=== PATIENT | male | born 1985 | race Caucasian/White ===

== ENCOUNTER 2016-07-18 18:25 | Inpatient (IN) ==
[2016-07-18] MEDS ORDERED: Ibuprofen 400 MG TABLET PO PRN (18:41)
[2016-07-18] MEDS ORDERED: Haloperidol Lactate 5 MG/ML VIAL IM PRN (18:41)
[2016-07-18] MEDS ORDERED: traZODone 50 MG TABLET PO PRN (18:41)
[2016-07-18] MEDS ORDERED: *HR* LORazepam 2 MG/ML VIAL IM PRN ×2 (18:41→18:50)
[2016-07-18] MEDS ORDERED: Mag Hydrox/Al Hydrox/Simeth 30 ML UDC PO PRN (18:41)
[2016-07-18] MEDS ORDERED: MOM Conc 10 ML UD.LIQ PO PRN (18:41)
[2016-07-18] MEDS ORDERED: hydrOXYzine pamoate 25 MG CAPSULE PO PRN (18:41)
[2016-07-18] MEDS ORDERED: *HR* LORazepam 1 MG TABLET PO PRN ×2 (18:41→18:50)
[2016-07-18] MEDS ORDERED: Acetaminophen 325 MG TABLET PO PRN (18:58)
[2016-07-18] MEDS ORDERED: Acetaminophen 325 MG TABLET PO SCH (20:00)
[2016-07-19] MEDS: Nicotine 21 MG PATCH.TD24 TD SCH (08:36)
[2016-07-19] MEDS: Vitamin B Complex/Vit C/Vit E 1 EACH TABLET PO SCH (08:36)
--- NOTE | 2016-07-19 10:36 | Psychiatry History & Physical ---
Date of Encounter: 07/19/16 Time of Encounter: 10:34 History of Present Illness Patient Stated Chief Complaint: "i am depressed" Medicare Admission Attestation: For traditional Medicare patients the provided hospital inpatient services are reasonable and necessary and in the case of services not specified as inpatient -only under 42 CFR 419.22 (n), that they are appropriately provided as inpatient services in accordance 42 CFR 412.3. For Critical Access Hospital the patient may reasonably be expected to be discharged or transferred to a hospital within 96 hours after admission to the Critical Access Hospital. Admitted From: Home Plans for Post Hospital Care: Home History of Present Illness: Mr. Ken is a 30 year old male with a past psychiatric history of major depressive disorder and anxiety disorder admitted to the behavioral health unit for suicidal ideations with a attempt prior to admission with trying to hang himself but reports that he was incapable of doing so after attempting 3 times. Patient reports that he has many stressors in his life right now one being that he is working but he has not able to get to work due to not having a place to stay he also reports that he is homeless and reports that he has no support or family for help. Patient reports that he has been homeless since 2013. Reports that he does have jobs but due to his depression and his recent job he had like go out because he was not able to make it to work. Patient is very motivated for treatment and we discussed medication management for his depression. Patient also reports that in the past he has not had medication because he has not been able to afford it. We discussed about medication management that would be affordable patient was agreeable to Zoloft and the patient reported some issues with sleep which we discussed starting trazodone 4. Patient endorsed depressive symptoms feeling hopeless irritable with decreased attention and decreased concentration and anhedonia depressed mood feelings of hopelessness and guilt passive suicidal ideations with no current plan. Patient endorses anxiety symptoms due to his current stressors excessive worry and feelings of panic patient did not endorse manic or hypomanic symptoms patient did not admit endorse psychotic symptoms Past Med Surg Social Fam HX - Past Medical History Medical history: no medical history - Past Psychiatric History Past psychiatric history details: Past meds: none Inpatient hospitalizations: 2009 [facility]:this admission he reports he tried to hang himself but the knots came out he reports he tried three times Current meds: none Family psychiatric history: No Family History of Suicide: None - Past Surgical History Surgical History: appendectomy - Social History Smoking Status: Current every day smoker Smokeless Tobacco Status: No Alcohol use: heavy, recent Drug use: none Occupational status: employed Current living situation: Homeless Activity Level: Independent ambulation Recent Out of Country Travel Within the Last 8 Weeks: No Exposure or Possible Exposure to Illness During Travel: No Additional social history: works at [employer] Medications & Allergies Allergies No Known Allergies Allergy (Verified 07/18/16 18:40) Review of Systems Constitutional: Denies: fever, chills, weakness, weight change, night sweats Eyes: Denies: eye pain, eye discharge, vision change Ears, Nose, Throat: Denies: ear pain, throat pain, dental pain, congestion, dysphagia Cardiovascular: Denies: chest pain, palpitations, dyspnea on exertion, orthopnea , edema, syncope Respiratory: Denies: cough, dyspnea, wheezes, hemoptysis, stridor, sputum production Psychiatric: Reports: depression, anxiety, abnormal sleep pattern, suicidal ideation, change in appetite, anhedonia, hopelessness Mental Status Exam Patient orientation: Yes Person, Yes Time, Yes Place, Yes Circumstance Level of alertness: Alert Patient appearance: Appropriate, Unkempt Behavior: anxious Psychomotor activity: Normal Eye contact: Maintains Eye Contact Mood description: Depressed, Anxious, Irritable Affect description: flat, tearful, dysphoric, anxious Speech pattern: Normal rate, Normal rhythm, Normal tone Speech volume: Normal Thought process: Intact Thought content: Yes Suicidal ideation, No Homicidal ideation, Yes Preoccupation Perceptual disturbances: No Reacting to internal stimuli, No Auditory hallucinations, No Visual hallucinations, No Tactile hallucinations Attention span: Capable of Focused Attention, Capable of Sustained Attention Memory description: Grossly Intact Intelligence estimate: Average Judgment: Limited Insight: Minimal Results - Vital Signs Vital signs: Temp Pulse Resp BP 97.6 F 75 16 113/74 07/19/16 09:00 07/19/16 09:00 07/19/16 09:00 07/19/16 09:00 Assessment and Plan (1) Major depression Current visit: Yes Status: Acute Plan: Admit inpatient for safety and stabilization, Group Therapy, Monitor sleep , Monitor appetite, Family/Supportive other meeting Additional Plan: 07/19: start zoloft 50 mg qday for deprssion start trazodone 100 mg qhs for insomnia Risks, benefits, side effects, alternatives discussed w/pt: Yes Patient agreeable to treatment: Yes Plans for Post Hospital Care: Home Estimated Length of Stay (Days): 5 Qualifiers: Major depression recurrence: recurrent Active/Remission status: currently active Major depression episode severity: severe Psychotic features: without psychotic features Qualified Code(s): F33.2 - Major depressive disorder, recurrent severe without psychotic features
[2016-07-19] MEDS ORDERED: traZODone 50 MG TABLET PO SCH (21:00)
[2016-07-20] MEDS: Nicotine 21 MG PATCH.TD24 TD SCH (08:16)
[2016-07-20] MEDS: Vitamin B Complex/Vit C/Vit E 1 EACH TABLET PO SCH (08:16)
--- NOTE | 2016-07-20 09:43 | Psychiatry Progress Note ---
Date of Encounter: 07/20/16 Time of Encounter: 09:40 Subjective Interval history: Pt seen and evaluated. Pt reports that he slept from 1030 and woke up briefly at 3 and fell back asleep till 6 am. Patient reports that he did not have any dreams last night after switching trazodone to Seroquel. Patient does report that he has not having any side effects or problems with current medication treatment. We will continue to titrate this medication. Patient has been attending groups and has been med compliant and has been interacting within group activities. Appetite fair. Patient continues to exhibit an endorse depressive symptoms as well as anxiety symptoms. Discussed at length with patient the possible discharge Saturday once medication is adjusted Review of Systems Psychiatric: Reports: depression, anxiety, abnormal sleep pattern, suicidal ideation, change in appetite, anhedonia, hopelessness Objective: Exam Patient orientation: Yes Person, Yes Time, Yes Place, Yes Circumstance Level of alertness: Alert Patient appearance: Appropriate, Unkempt Behavior: anxious Psychomotor activity: Normal Eye contact: Maintains Eye Contact Mood description: Depressed, Anxious, Irritable Affect description: flat, tearful, dysphoric, anxious Speech pattern: Normal rate, Normal rhythm, Normal tone Speech volume: Normal Thought process: Intact Thought content: Yes Suicidal ideation, No Homicidal ideation, Yes Preoccupation Perceptual disturbances: No Reacting to internal stimuli, No Auditory hallucinations, No Visual hallucinations, No Tactile hallucinations Judgment: Limited Insight: Minimal Results - Vital Signs Vital Signs: Temp Pulse Resp BP 98.5 F 99 16 113/74 07/20/16 08:39 07/20/16 08:39 07/20/16 08:39 07/20/16 08:39 Assessment and Plan (1) Major depression Current visit: Yes Status: Acute Additional Plan: 07/20: increase zoloft 100 mg for deprssion and anxiety 07/19: start zoloft 50 mg qday for deprssion start trazodone 100 mg qhs for insomnia Risks, benefits, side effects, alternatives discussed w/pt: Yes Patient agreeable to treatment: Yes Qualifiers: Major depression recurrence: recurrent Active/Remission status: currently active Major depression episode severity: severe Psychotic features: without psychotic features Qualified Code(s): F33.2 - Major depressive disorder, recurrent severe without psychotic features Consult Discharge Plan - Plan Referrals: NO,PCP [Primary Care Provider] -
[2016-07-21] MEDS: Nicotine 21 MG PATCH.TD24 TD SCH (08:45)
[2016-07-21] MEDS: Vitamin B Complex/Vit C/Vit E 1 EACH TABLET PO SCH (08:46)
--- NOTE | 2016-07-21 11:19 | Psychiatry Progress Note ---
Date of Encounter: 07/21/16 Time of Encounter: 11:17 Subjective Interval history: Patient seen and evaluated this morning. Patient reports that he slept well but he was a little restless at night. Patient reports that he is still having ongoing depressive symptoms explained to patient that we will be increasing his Zoloft. Patient was agreeable to this. Patient reports feeling anxious about his discharge plan. Discussed with patient that some of his depression and anxiety is situational due to patient being homeless and not currently having a job. Patient expressed understanding. Patient has been medication compliant. Patient has not required any when necessary medications for anxiety or depression or agitation. Per staff patient has been socializing with peers and has been active in groups. Review of Systems Psychiatric: Reports: depression, anxiety, change in appetite Objective: Exam Patient orientation: Yes Person, Yes Time, Yes Place, Yes Circumstance Level of alertness: Alert Patient appearance: Appropriate, Unkempt Behavior: anxious Psychomotor activity: Normal Eye contact: Maintains Eye Contact Mood description: Depressed, Anxious, Irritable Affect description: flat, tearful, dysphoric, anxious Speech pattern: Normal rate, Normal rhythm, Normal tone Speech volume: Normal Thought process: Intact Thought content: Yes Suicidal ideation, No Homicidal ideation, Yes Preoccupation Perceptual disturbances: No Reacting to internal stimuli, No Auditory hallucinations, No Visual hallucinations, No Tactile hallucinations Judgment: Limited Insight: Minimal Results - Vital Signs Vital Signs: Temp Pulse Resp BP 98.2 F 69 18 115/69 07/21/16 09:00 07/21/16 09:00 07/21/16 09:00 07/21/16 09:00 Assessment and Plan (1) Major depression Current visit: Yes Status: Acute Additional Plan: 07/21: increase seroquel 150 mg qhs for insomnia and mood sx's 07/20: increase zoloft 100 mg for deprssion and anxiety 07/19: start zoloft 50 mg qday for deprssion start trazodone 100 mg qhs for insomnia Risks, benefits, side effects, alternatives discussed w/pt: Yes Patient agreeable to treatment: Yes Qualifiers: Major depression recurrence: recurrent Active/Remission status: currently active Major depression episode severity: severe Psychotic features: without psychotic features Qualified Code(s): F33.2 - Major depressive disorder, recurrent severe without psychotic features Consult Discharge Plan - Plan Additional Instructions: The 24 hour crisis line for [facility] is [phone]. Referrals: [facility] [Other] (You will see Nimo counselor, on at 2:00pm to start services as a client. Please arrive at 1:30pm for paperwork. After you see Nimo, you will be given an appointment to see the psychiatrist as well. Please bring your photo ID and insurance card to your first appointment.)
[2016-07-22] MEDS: Nicotine 21 MG PATCH.TD24 TD SCH (08:24)
[2016-07-22] MEDS: Vitamin B Complex/Vit C/Vit E 1 EACH TABLET PO SCH (08:25)
--- NOTE | 2016-07-22 09:04 | Psychiatry Progress Note ---
Date of Encounter: 07/22/16 Time of Encounter: 09:01 Subjective Interval history: Pt seen and evaluated this morning. Patient reports that he got a good night sleep finally last night. Patient reports no symptoms of current anxiety does report some depressive symptoms at times. I discussed initiation and schedule of titration of his antidepressant patient reported understanding. Patient was questioning his discharge plan. Discussed with patient the professor of social work with her with patient to finalize his discharge plan for Saturday or Saturday. Patient denied SI or HI. Patient has been medication compliant. Patient has been observed by staff participating in group activities and interacting with his peers. Review of Systems Psychiatric: Reports: depression, anxiety Objective: Exam Patient orientation: Yes Person, Yes Time, Yes Place, Yes Circumstance Level of alertness: Alert Patient appearance: Appropriate, Unkempt Behavior: anxious Psychomotor activity: Normal Eye contact: Maintains Eye Contact Mood description: Depressed, Anxious Affect description: congruent with mood Speech pattern: Normal rate, Normal rhythm, Normal tone Speech volume: Normal Thought process: Intact Thought content: Yes Suicidal ideation, No Homicidal ideation, Yes Preoccupation Perceptual disturbances: No Reacting to internal stimuli, No Auditory hallucinations, No Visual hallucinations, No Tactile hallucinations Judgment: Limited Insight: Minimal Results - Vital Signs Vital Signs: Temp Pulse Resp BP 98 F 79 16 134/87 07/21/16 19:59 07/21/16 19:59 07/21/16 19:59 07/21/16 19:59 Assessment and Plan (1) Major depression Current visit: Yes Status: Acute Additional Plan: 07/22: continue meds 07/21: increase seroquel 150 mg qhs for insomnia and mood sx's 07/20: increase zoloft 100 mg for deprssion and anxiety 07/19: start zoloft 50 mg qday for deprssion start trazodone 100 mg qhs for insomnia Risks, benefits, side effects, alternatives discussed w/pt: Yes Patient agreeable to treatment: Yes Qualifiers: Major depression recurrence: recurrent Active/Remission status: currently active Major depression episode severity: severe Psychotic features: without psychotic features Qualified Code(s): F33.2 - Major depressive disorder, recurrent severe without psychotic features Consult Discharge Plan - Plan Additional Instructions: The 24 hour crisis line for [facility] is [phone]. Referrals: [facility] [Other] (You will see Nimo, counselor, on at 2:00pm to start services as a client. Please arrive at 1:30pm for paperwork. After you see Nimo, you will be given an appointment to see the psychiatrist as well. Please bring your photo ID and insurance card to your first appointment.)
[2016-07-23] MEDS: Vitamin B Complex/Vit C/Vit E 1 EACH TABLET PO SCH (08:21)
[2016-07-23] MEDS: Nicotine 21 MG PATCH.TD24 TD SCH (08:21)
[2016-07-23 08:23] VITALS: BP 109/76
--- NOTE | 2016-07-23 09:47 | Discharge Summary ---
Date of Encounter: 07/23/16 Time of Encounter: 09:46 Diagnosis - Discharge Diagnosis (1) Major depression Priority: Primary Status: Acute Qualifiers: Major depression recurrence: recurrent Active/Remission status: currently active Major depression episode severity: severe Psychotic features: without psychotic features Qualified Code(s): F33.2 - Major depressive disorder, recurrent severe without psychotic features Medications - Discharge Medications Prescriptions: Quetiapine Fumarate [Seroquel] 150 mg PO HS #45 tablet Sertraline [Zoloft] 100 mg PO DAILY #30 tablet Quetiapine Fumarate [Seroquel] 150 mg PO HS #45 tablet 07/23/16 [Rx] Sertraline [Zoloft] 100 mg PO DAILY #30 tablet 07/23/16 [Rx] Allergies No Known Allergies Allergy (Verified 07/18/16 18:40) Provider Date of admission: 07/18/16 18:25 Primary care physician: PCP NO Discharging clinician: Bacilio Hsieh Assessment and Plan - Patient/Caregiver Discharge Instructions Activity: resume usual activities as tolerated Diet: regular diet Additional Instructions: The 24 hour crisis line for [facility] is [phone]. - Follow up Plan Follow up with: [facility] [Other] (You will see jacky Sueroor, on at 2:00pm to start services as a client. Please arrive at 1:30pm for paperwork. After you see Nimo, you will be given an appointment to see the psychiatrist as well. Please bring your photo ID and insurance card to your first appointment.) Functional capacity at discharge: independent ambulation Overall status at discharge: Stable Disposition: Home, Self-Care Hospital Course Hospital course: Mr. Ken is a 30 year old male admitted from the emergency room for depression and suicidal ideation and anxiety. The details of the admission please see H&P. On the unit patient was evaluated, he was started on medication including sertraline and Seroquel patient had some side effects from trazodone and trazodone was replaced with Seroquel. Patient is reported improved on medication he denies suicidal ideation he participated in group activities and his discharge plans were completed by the high school social studies teacher. Prior to Discharge patient was medically stable and denies suicidal ideation and looking forward to placement and continuation of medication and follow-up. - Time Spent with Patient Total time spent providing and/or coordinating discharge services: Less than 30 minutes Quality - Multiple Antipsychotics Patient discharged on 2 or more antipsychotic medications: No Procedures - Procedures Procedures: Medication Management, Crisis Stabilization, Supportive Therapy, Group Therapy, Psychoeducational Therapy Mental Status Exam - Mental Status Exam Patient orientation: Yes Person, Yes Time, Yes Place, Yes Circumstance Level of alertness: Alert Patient appearance: Appropriate, Well Groomed, Thin Behavior: calm, cooperative, anxious Psychomotor activity: Normal Eye contact: Maintains Eye Contact Mood description: Euthymic/stable, Anxious Affect description: congruent with mood Speech pattern: Normal rate, Normal rhythm, Normal tone Speech Volume: Normal Thought process: Intact Thought Content: No Suicidal ideation, No Homicidal ideation Perceptual Disturbances: No Reacting to internal stimuli, No Auditory hallucinations, No Visual hallucinations, No Tactile hallucinations Judgment: Fair Insight: Partial
== END 2016-07-23 19:35 | disposition home or self-care (01) | DRG 751 ==
LOC: SUATTDRO 18:25 → 1ANU 18:25
PROVIDERS: ADMIT Psychiatry & Neurology Psychiatry; ATTEND Psychiatry & Neurology Psychiatry

== ENCOUNTER 2016-07-30 23:07 | Inpatient (IN) ==
[2016-07-30 23:29] LABS: Bilirubin,Urine Negative (Negative); Blood,Urine Negative (Negative); Clarity,Urine Clear (Clear); Color,Urine Yellow (Yellow); Glucose,Urine (UA) Normal (Normal); Ketones,Urine Negative (Negative); Leukocyte Esterase,Urine Negative (Negative); Nitrite,Urine Negative (Negative); PH,Urine 6.5 pH Units (5.0-8.0); Protein,Urine Negative (Neg-Trace); Specific Gravity,Urine 1.006 (1.010-1.025); Urobilinogen,Urine Normal (Normal)
[2016-07-30 23:35] LABS: Amphetamine Screen,Urine Negative ng/mL (Cutoff=1000); Barbiturate Screen,Urine Negative ng/mL (Cutoff=200); Benzodiazepines Screen,Urine Negative ng/mL (Cutoff=200); Cannabinoid Screen,Urine Negative ng/mL (Cutoff = 50); Cocaine Screen,Urine Negative ng/mL (Cutoff= 300); Opiate Screen,Urine Negative ng/mL (Cutoff=300); Phencyclidine Screen,Urine Negative ng/mL (Cutoff=25)
[2016-07-30 23:40] LABS: Basophils # 0.1 K/mcL (0.0-0.2); Basophils % 0.6 %; Eosinophils # 0.1 K/mcL (0.0-0.6); Eosinophils % 0.7 %; Hematocrit 48.3 % (37.5-50.1); Hemoglobin 16.9 g/dL (12.9-16.9); Immature Granulocytes % 0.4 % (0-4); Lymphocytes # 2.6 K/mcL (0.6-4.6); Lymphocytes % 27.8 %; Mean Corpuscular Hemoglobin 31.7 pg (28.0-33.3); Mean Corpuscular Volume 90.6 fL (83.0-100.0); Mean Platelet Volume 9.5 fL (9.4-12.4); Monocytes # 0.6 K/mcL (0.0-1.3); Monocytes % 6.1 %; Neutrophils # 6.1 K/mcL (1.6-8.9); Platelet Count 256 K/mcL (140-400); Red Blood Count 5.33 M/mcL (4.19-5.50); Segmented Neutrophils % 64.4 %
[2016-07-30] MEDS ORDERED: Ketamine *HR* 500 MG/10 ML MDV IM ONE (23:45)
--- NOTE | 2016-07-30 23:47 | Emergency Department Note ---
Disposition Clinical Impression: Suicidal ideation Depression Qualifiers: Depression Type: unspecified Qualified Code(s): F32.9 - Major depressive disorder, single episode, unspecified Disposition: Admitted As Inpatient Condition: Fair Referrals: NO,PCP [Primary Care Provider] - Forms: ED Satisfaction Letter Time of Disposition: 15:35 Psych HPI - General Chief Complaint: ED Psychiatric Symptoms Stated Complaint: SI/ETOH Time Seen by Provider: 07/30/16 23:21 Source: patient Mode of arrival: ambulatory Limitations: altered mental status Nursing Notes Reviewed: Yes Vital Signs Reviewed: Yes - History of Present Illness HPI Narrative: Emergency department by his brother. On July 18 patient attempted suicide while staying at a hotel room he was found having hung himself with a sheet and they did Cut him down from hanging himself and was brought to the emergency department and he was admitted to [facility] for 5 days. His brother is upset he states that he does not want to do just needs to find help for his brother. Apparently they went to check on him at his hotel room tonight and found that he was contemplating committing suicide in hanging himself against. There was a sheet draped across the edge of the bed and apparently he had intentions of trying to hang himself. He has been drinking tonight he is uncooperative combative and aggressive. He does admit to suicidal ideation and is wanting to leave at this time states that there is no way we can hold him at this time. Initially he did say that he wanted to talk to somebody on [facility] and get some help. He has been pink slipped at this time due to the fact that he has both a threat to himself and to others around him. We have him in 4-point restraints due to his combative behavior and we will medicate him with ketamine. He did urinate for us and we did lab work for him. His brother, Artemio, states he has been seeing things that are not there and he doesn't know what to do and just wants to find help for him. Pt complaint: suicidal ideation, feels depressed If medical clearance, reason: intoxication, psychiatric condition History of similar episodes: Yes Improves with: none Worsens with: none Context: recent alcohol abuse, not taking psychiatric medications Alleged intoxication: Yes Associated Psychiatric Symptoms: depression, suicidal ideation Self harm or harm to others: admits thoughts of self harm, has plan - Related Data Previous Rx's Medication Instructions Recorded Quetiapine Fumarate [Seroquel] 150 mg PO HS #45 tablet 07/23/16 Sertraline [Zoloft] 100 mg PO DAILY #30 tablet 07/23/16 Allergies Allergy/AdvReac Type Severity Reaction Status Date / Time No Known Allergies Allergy Verified 07/30/16 23:11 All systems ED: reviewed and negative except as stated. Constitutional: Denies: fever, chills, weakness, weight change Cardiovascular: Denies: chest pain, palpitations, dyspnea on exertion, edema, syncope Respiratory: Denies: cough, dyspnea, wheezes, hemoptysis, stridor Psychiatric: Reports: suicidal thoughts, visual hallucinations Past Medical History - Past Medical History Medical history: Reports: no medical history Surgical history: Reports: appendectomy Psychiatric history: Reports: anxiety, depression, prior suicide attempt, previous psychiatric hospitalization - Social History Smoking Status: Current every day smoker Smokeless Tobacco Status: No Alcohol use: Reports: heavy, recent Drug use: Reports: none Physical Exam - General Limitations: no limitations General appearance: alert Course - Reevaluation(s) Reevaluation #1: Patient's blood alcohol was 287, will need to be below 80 before 1A will see and evaluate patient. Will plan to redraw blood alcohol at 0800. Time: 03:16 Reevaluation #2: Patient continues to sleep at this time. No complaints. Time: 05:34 Vital Signs Temperature 97.7 F 07/30/16 23:11 Pulse Rate 130 07/30/16 23:11 Respiratory Rate 20 07/30/16 23:11 Blood Pressure 137/73 07/30/16 23:11 O2 Sat by Pulse Oximetry 96 07/30/16 23:11 Temperature 98.7 F 07/31/16 13:10 Pulse Rate 100 07/31/16 13:10 Respiratory Rate 15 07/31/16 13:10 Blood Pressure 112/60 07/31/16 13:10 O2 Sat by Pulse Oximetry 95 07/31/16 13:10 Oxygen Delivery Oxygen Delivery Room Air Psych - Lab Data Result diagrams: 07/30/16 23:33 07/30/16 23:33 Lab Results 07/30/16 07/30/16 07/30/16 Range/Units 23:21 23:21 23:33 WBC 9.5 (4.3-11.1) K/mcL RBC 5.33 (4.19-5.50) M/mcL Hgb 16.9 (12.9-16.9) g/dL Hct 48.3 (37.5-50.1) % MCV 90.6 (83.0-100.0) fL MCH 31.7 (28.0-33.3) pg MCHC 35.0 (31.6-35.5) g/dL RDW 12.0 (11.5-14.5) % Plt Count 256 (140-400) K/mcL MPV 9.5 (9.4-12.4) fL Immature Gran % 0.4 (0-4) % Seg Neutrophils % 64.4 % Lymphocytes % 27.8 % Monocytes % 6.1 % Eosinophils % 0.7 % Basophils % 0.6 % Neutrophils # 6.1 (1.6-8.9) K/mcL Lymphocytes # 2.6 (0.6-4.6) K/mcL Monocytes # 0.6 (0.0-1.3) K/mcL Eosinophils # 0.1 (0.0-0.6) K/mcL Basophils # 0.1 (0.0-0.2) K/mcL Sodium (136-145) mEq/L Potassium (3.5-4.5) mEq/L Chloride (98-109) mEq/L Carbon Dioxide (19-29) mEq/L BUN (8-26) mg/dL Creatinine (0.72-1.25) mg/dL Est GFR ( Amer) (> 60) Est GFR (Non-Af Amer) (> 60) BUN/Creatinine Ratio (6-26) Glucose (70-99) mg/dL Calculated Osmolality (280-300) Calcium (8.6-10.8) mg/dL Total Bilirubin (0.2-1.2) mg/dL Direct Bilirubin (0.0-0.5) mg/dL Indirect Bilirubin (0.0-1.2) mg/dL AST (5-34) Units/L ALT (0-55) Units/L Alkaline Phosphatase (38-126) Units/L Serum Total Protein (6.0-8.3) g/dL Albumin (3.5-5.0) g/dL Globulin (2.4-3.5) g/dL Albumin/Globulin Ratio (1.1-2.2) TSH (0.350-4.840) mcIU/mL Urine Color Yellow (Yellow) Urine Clarity Clear (Clear) Urine pH 6.5 (5.0-8.0) pH Units Ur Specific [place] 1.006 L (1.010-1.025) Urine Protein Negative (Neg-Trace) mg/dL Urine Glucose (UA) Normal (Normal) mg/dL Urine Ketones Negative (Negative) mg/dL Urine Blood Negative (Negative) Urine Nitrite Negative (Negative) Urine Bilirubin Negative (Negative) Urine Urobilinogen Normal (Normal) mg/dL Ur Leukocyte Esterase Negative (Negative) Salicylates (15-30) mg/dL Urine Opiates Screen Negative (Wouydq=804) ng/mL Acetaminophen (10-30) mcg/mL Ur Barbiturates Screen Negative (Samptr=198) ng/mL Ur Phencyclidine Scrn Negative (Cutoff=25) ng/mL Ur Amphetamines Screen Negative (Wmfmpi=8686) ng/mL U Benzodiazepines Scrn Negative (Conupp=697) ng/mL Urine Cocaine Screen Negative (Cutoff= 300) ng/mL U Marijuana (THC) Screen Negative (Cutoff = 50) ng/mL Ethyl Alcohol (0-10) mg/dL 07/30/16 07/31/16 07/31/16 Range/Units 23:33 08:13 11:06 WBC (4.3-11.1) K/mcL RBC (4.19-5.50) M/mcL Hgb (12.9-16.9) g/dL Hct (37.5-50.1) % MCV (83.0-100.0) fL MCH (28.0-33.3) pg MCHC (31.6-35.5) g/dL RDW (11.5-14.5) % Plt Count (140-400) K/mcL MPV (9.4-12.4) fL Immature Gran % (0-4) % Seg Neutrophils % % Lymphocytes % % Monocytes % % Eosinophils % % Basophils % % Neutrophils # (1.6-8.9) K/mcL Lymphocytes # (0.6-4.6) K/mcL Monocytes # (0.0-1.3) K/mcL Eosinophils # (0.0-0.6) K/mcL Basophils # (0.0-0.2) K/mcL Sodium 143 (136-145) mEq/L Potassium 3.9 (3.5-4.5) mEq/L Chloride 110 H (98-109) mEq/L Carbon Dioxide 20 (19-29) mEq/L BUN 10 (8-26) mg/dL Creatinine 0.87 (0.72-1.25) mg/dL Est GFR ( Amer) > 60 (> 60) Est GFR (Non-Af Amer) > 60 (> 60) BUN/Creatinine Ratio 11 (6-26) Glucose 113 H (70-99) mg/dL Calculated Osmolality 296 (280-300) Calcium 9.2 (8.6-10.8) mg/dL Total Bilirubin 0.3 (0.2-1.2) mg/dL Direct Bilirubin 0.1 (0.0-0.5) mg/dL Indirect Bilirubin 0.2 (0.0-1.2) mg/dL AST 23 (5-34) Units/L ALT 32 (0-55) Units/L Alkaline Phosphatase 101 (38-126) Units/L Serum Total Protein 8.6 H (6.0-8.3) g/dL Albumin 4.7 (3.5-5.0) g/dL Globulin 3.9 H (2.4-3.5) g/dL Albumin/Globulin Ratio 1.2 (1.1-2.2) TSH 2.668 (0.350-4.840) mcIU/mL Urine Color (Yellow) Urine Clarity (Clear) Urine pH (5.0-8.0) pH Units Ur Specific [place] (1.010-1.025) Urine Protein (Neg-Trace) mg/dL Urine Glucose (UA) (Normal) mg/dL Urine Ketones (Negative) mg/dL Urine Blood (Negative) Urine Nitrite (Negative) Urine Bilirubin (Negative) Urine Urobilinogen (Normal) mg/dL Ur Leukocyte Esterase (Negative) Salicylates < 5.0 L (15-30) mg/dL Urine Opiates Screen (Flnyvp=438) ng/mL Acetaminophen < 1.0 L (10-30) mcg/mL Ur Barbiturates Screen (Ptaaqo=350) ng/mL Ur Phencyclidine Scrn (Cutoff=25) ng/mL Ur Amphetamines Screen (Cgrwnc=1720) ng/mL U Benzodiazepines Scrn (Rxvpuq=622) ng/mL Urine Cocaine Screen (Cutoff= 300) ng/mL U Marijuana (THC) Screen (Cutoff = 50) ng/mL Ethyl Alcohol 287 H 134 H 94 H (0-10) mg/dL 07/31/16 Range/Units 13:40 WBC (4.3-11.1) K/mcL RBC (4.19-5.50) M/mcL Hgb (12.9-16.9) g/dL Hct (37.5-50.1) % MCV (83.0-100.0) fL MCH (28.0-33.3) pg MCHC (31.6-35.5) g/dL RDW (11.5-14.5) % Plt Count (140-400) K/mcL MPV (9.4-12.4) fL Immature Gran % (0-4) % Seg Neutrophils % % Lymphocytes % % Monocytes % % Eosinophils % % Basophils % % Neutrophils # (1.6-8.9) K/mcL Lymphocytes # (0.6-4.6) K/mcL Monocytes # (0.0-1.3) K/mcL Eosinophils # (0.0-0.6) K/mcL Basophils # (0.0-0.2) K/mcL Sodium (136-145) mEq/L Potassium (3.5-4.5) mEq/L Chloride (98-109) mEq/L Carbon Dioxide (19-29) mEq/L BUN (8-26) mg/dL Creatinine (0.72-1.25) mg/dL Est GFR ( Amer) (> 60) Est GFR (Non-Af Amer) (> 60) BUN/Creatinine Ratio (6-26) Glucose (70-99) mg/dL Calculated Osmolality (280-300) Calcium (8.6-10.8) mg/dL Total Bilirubin (0.2-1.2) mg/dL Direct Bilirubin (0.0-0.5) mg/dL Indirect Bilirubin (0.0-1.2) mg/dL AST (5-34) Units/L ALT (0-55) Units/L Alkaline Phosphatase (38-126) Units/L Serum Total Protein (6.0-8.3) g/dL Albumin (3.5-5.0) g/dL Globulin (2.4-3.5) g/dL Albumin/Globulin Ratio (1.1-2.2) TSH (0.350-4.840) mcIU/mL Urine Color (Yellow) Urine Clarity (Clear) Urine pH (5.0-8.0) pH Units Ur Specific [place] (1.010-1.025) Urine Protein (Neg-Trace) mg/dL Urine Glucose (UA) (Normal) mg/dL Urine Ketones (Negative) mg/dL Urine Blood (Negative) Urine Nitrite (Negative) Urine Bilirubin (Negative) Urine Urobilinogen (Normal) mg/dL Ur Leukocyte Esterase (Negative) Salicylates (15-30) mg/dL Urine Opiates Screen (Bcevhp=746) ng/mL Acetaminophen (10-30) mcg/mL Ur Barbiturates Screen (Ozgjvm=837) ng/mL Ur Phencyclidine Scrn (Cutoff=25) ng/mL Ur Amphetamines Screen (Mfxnlj=6847) ng/mL U Benzodiazepines Scrn (Oxfnnb=649) ng/mL Urine Cocaine Screen (Cutoff= 300) ng/mL U Marijuana (THC) Screen (Cutoff = 50) ng/mL Ethyl Alcohol 49 H (0-10) mg/dL Psychiatric Medical Clearance - Medical Clearance Checklist Does the patient have a NEW psychiatric condition?: No Any abnormalities indicating possible medical illness?: No Any history of medical issues?: No Medical History: No Social History Section defined Any abnormal vital signs prior to transfer?: No Current Vitals: Last Vital Signs Temp 98.7 F 07/31/16 13:10 Pulse 100 07/31/16 13:10 Resp 15 07/31/16 13:10 BP 112/60 07/31/16 13:10 Pulse Ox 95 07/31/16 13:10 Is the patient intoxicated or cognitively impaired?: Yes (Blood alcohol 287; will redraw at 0800) Psychiatric Lab Panel: Drug Levels and Toxicity 07/30/16 07/30/16 07/31/16 23:21 23:33 08:13 Urine Opiates Screen Negative Acetaminophen < 1.0 L Ur Barbiturates Screen Negative Ur Phencyclidine Scrn Negative Ur Amphetamines Screen Negative U Benzodiazepines Scrn Negative Urine Cocaine Screen Negative U Marijuana (THC) Screen Negative Ethyl Alcohol 287 H 134 H 07/31/16 07/31/16 11:06 13:40 Urine Opiates Screen Acetaminophen Ur Barbiturates Screen Ur Phencyclidine Scrn Ur Amphetamines Screen U Benzodiazepines Scrn Urine Cocaine Screen U Marijuana (THC) Screen Ethyl Alcohol 94 H 49 H Any abnormalities on the physical exam?: No Any abnormal labs?: No Abnormal Labs: Abnormal lab results Chloride 110 mEq/L (98-109) H 07/30/16 23:33 Glucose 113 mg/dL (70-99) H 07/30/16 23:33 Serum Total Protein 8.6 g/dL (6.0-8.3) H 07/30/16 23:33 Globulin 3.9 g/dL (2.4-3.5) H 07/30/16 23:33 Ur Specific [place] 1.006 (1.010-1.025) L 07/30/16 23:21 Salicylates < 5.0 mg/dL (15-30) L 07/30/16 23:33 Acetaminophen < 1.0 mcg/mL (10-30) L 07/30/16 23:33 Ethyl Alcohol 49 mg/dL (0-10) H 07/31/16 13:40 Does the patient require durable medical equiptment?: No Is the patient ambulatory?: Yes Is the patient a fall risk?: No Has the patient been medically cleared?: Yes Any acute medical condition require Tx prior to transfer?: No S.B.A.R. - S.B.A.R. Background: Presenting Complaint Assessment: Vital Signs, Course and respsone to treatment, Patient/Family Expectation, Pertinant Lab Results, Outstanding Labs Recommendation: Recommendation based on pending studies, treatments, or consults (will need repeat Blood alcohol at 0800 and call 1A to come and evaluate patient for possible admission to their unit. He is pink slipped at this time. ) S.B.A.R. Report Given to: KENAN Baker Attestation Statement - Attestation Attestation: For this encounter, I have reviewed the ASSEMBLER ENGINE or PA documentation, treatment plan, and medical decision making; and I have had face to face time with this patient. Patient seen for depression suicidal ideation physical examination lungs are clear abdomen is soft. Patient's alcohol level was high we monitored until he came down into the normal range patient was evaluated by psychiatry felt he should be admitted for his safety.
[2016-07-30 23:55] LABS: Alanine Aminotransferase 32 Units/L (0-55); Albumin 4.7 g/dL (3.5-5.0); Albumin/Globulin Ratio 1.2 (1.1-2.2); Alkaline Phosphatase 101 Units/L (38-126); Aspartate Amino Transferase 23 Units/L (5-34); BUN/Creatinine Ratio 11 (6-26); Bilirubin,Direct 0.1 mg/dL (0.0-0.5); Bilirubin,Indirect 0.2 mg/dL (0.0-1.2); Bilirubin,Total 0.3 mg/dL (0.2-1.2); Blood Urea Nitrogen 10 mg/dL (8-26); Calcium 9.2 mg/dL (8.6-10.8); Carbon Dioxide 20 mEq/L (19-29); Chloride 110 mEq/L (98-109); Globulin 3.9 g/dL (2.4-3.5); Glucose 113 mg/dL (70-99); Osmolality,Calculated 296 (280-300); Potassium 3.9 mEq/L (3.5-4.5); Sodium 143 mEq/L (136-145); Total Protein 8.6 g/dL (6.0-8.3); eGFR For African Americans > 60 (> 60); eGFR For Non-African Americans > 60 (> 60)
--- NOTE | 2016-07-31 00:07 | Emergency Department Note ---
START Narrative - START START: I examined this patient and my medical decision-making was reviewed with the DIRECTOR OF PLAYER PERSONNEL/PA/Advanced Practice Nurse/Resident Physician. I agree with the documented findings, disposition and treatment plan as described except to the extent set forth below. ED attending note: Patient seen with nurse practitioner Darin Camara. Please see a copy of his note for details of the H&P, evaluation, management and disposition of this patient. We independently had [id number] contact with the patient Briefly: A 30-year-old male via police and EMS style ideations attempted to hang himself before his discharge from the hospital family member found a bed sheet and his room patient was very labile and stating thoughts of suicide. Very combative and aggressive here we used the subcutaneous associated dose of 1 mg/kg of IM ketamine for chemical sedation and restraint. Patient will undergo medical clearance and evaluation by mental health for final disposition. Disposition pending. Patient stable
[2016-07-31 01:08] LABS: Ethanol 287 mg/dL (0-10)
[2016-07-31 01:13] LABS: Acetaminophen < 1.0 mcg/mL (10-30); Salicylate < 5.0 mg/dL (15-30)
[2016-07-31] MEDS ORDERED: Haloperidol Lactate 5 MG/ML VIAL IM ONE (01:13)
[2016-07-31 01:28] LABS: Thyroid Stimulating Hormone 2.668 mcIU/mL (0.350-4.840)
[2016-07-31] MEDS ORDERED: traZODone 50 MG TABLET PO PRN (16:09)
[2016-07-31] MEDS ORDERED: Mag Hydrox/Al Hydrox/Simeth 30 ML UDC PO PRN (16:09)
[2016-07-31] MEDS ORDERED: Haloperidol Lactate 5 MG/ML VIAL IM PRN (16:09)
[2016-07-31] MEDS ORDERED: *HR* LORazepam 1 MG TABLET PO PRN (16:09)
[2016-07-31] MEDS ORDERED: *HR* LORazepam 2 MG/ML VIAL IM PRN (16:09)
[2016-07-31] MEDS ORDERED: MOM Conc 10 ML UD.LIQ PO PRN (16:09)
[2016-07-31] MEDS: hydrOXYzine pamoate 25 MG CAPSULE PO PRN (17:24)
[2016-07-31] MEDS: Acetaminophen 325 MG TABLET PO PRN (20:07)
--- NOTE | 2016-08-01 10:13 | Psychiatry History & Physical ---
Date of Encounter: 08/01/16 Time of Encounter: 10:15 History of Present Illness Patient Stated Chief Complaint: suicidal Medicare Admission Attestation: For traditional Medicare patients the provided hospital inpatient services are reasonable and necessary and in the case of services not specified as inpatient -only under 42 CFR 419.22 (n), that they are appropriately provided as inpatient services in accordance 42 CFR 412.3. For Critical Access Hospital the patient may reasonably be expected to be discharged or transferred to a hospital within 96 hours after admission to the Critical Access Hospital. Admitted From: Emergency Dept History of Present Illness: Mr. Ken is a 30 year old male admitted from the emergency department for suicidal ideation and intoxication was alcohol patient level in the ER was 287 and he was held in the ER nurse prior to [facility]. Disks was a rapid readmission, patient was discharged from this unit on July 23. He did not follow the discharge plan and started drinking excessive amount of alcohol and presented to reporting suicidal ideation. Also patient did not fill his prescription or take medication after discharge. Patient was interviewed with addiction social worker and joint evaluation he became angry and used profanities and left the office without being excused. Past Med Surg Social Fam HX - Past Medical History Medical history: no medical history - Past Psychiatric History Psychiatric history: Reports: depression, previous psychiatric hospitalization, other (Alcohol dependence and intoxication) Past psychiatric history details: Hospitalized at [facility] from July 18 and discharge 07/23/2016. Family psychiatric history: Unknown Family History of Suicide: Unknown - Past Surgical History Surgical History: appendectomy - Social History Smoking Status: Current every day smoker Smokeless Tobacco Status: No Alcohol use: heavy, recent Drug use: none Medications & Allergies Quetiapine Fumarate [Seroquel] 150 mg PO HS #45 tablet 07/23/16 [Rx] Sertraline [Zoloft] 100 mg PO DAILY #30 tablet 07/23/16 [Rx] Allergies No Known Allergies Allergy (Verified 07/30/16 23:11) Review of Systems Psychiatric: Reports: suicidal ideation, other (Clinical intoxication and agitation and noncompliance) Mental Status Exam Patient orientation: Yes Person, Yes Time, Yes Place Level of alertness: Alert Patient appearance: Appropriate, Well Groomed, Unkempt, Disheveled, Inappropriate Behavior: agitated, hostile, uncooperative, guarded, impulsive, other (Verbally abusive and profane to the doctor and addiction social worker) Psychomotor activity: Agitated Eye contact: Avoids Eye Contact Mood description: Angry, Irritable, Other (Agitated) Affect description: constricted, dysphoric, other (Hostile and uncooperative) Speech pattern: Limited, Includes Profanity Speech volume: Soft/Quiet Thought process: Tangential, Thought Blocking Thought content: Yes Suicidal ideation, Yes Homicidal ideation, No Overt delusions Perceptual disturbances: No Auditory hallucinations, No Visual hallucinations Attention span: Capable of Focused Attention Memory description: Grossly Intact Patient reliability: Reliable Historian Intelligence estimate: Average Judgment: Limited Insight: Partial Additional Findings: Patient was uncooperative with evaluation patient stated hostile verbally abusive and profane with the doctor and addiction social worker and left interview without excuse. Results - Vital Signs Vital signs: Temp Pulse Resp BP Pulse Ox 96.6 F L 93 16 119/86 95 08/01/16 08:22 08/01/16 08:22 08/01/16 08:22 08/01/16 08:22 07/31/16 13:10 - Labs Labs: Laboratory Last Values WBC 9.5 K/mcL (4.3-11.1) 07/30/16 23:33 RBC 5.33 M/mcL (4.19-5.50) 07/30/16 23:33 Hgb 16.9 g/dL (12.9-16.9) 07/30/16 23:33 Hct 48.3 % (37.5-50.1) 07/30/16 23:33 MCV 90.6 fL (83.0-100.0) 07/30/16 23:33 MCH 31.7 pg (28.0-33.3) 07/30/16 23:33 MCHC 35.0 g/dL (31.6-35.5) 07/30/16 23:33 RDW 12.0 % (11.5-14.5) 07/30/16 23:33 Plt Count 256 K/mcL (140-400) 07/30/16 23:33 MPV 9.5 fL (9.4-12.4) 07/30/16 23:33 Immature Gran % 0.4 % (0-4) 07/30/16 23:33 Seg Neutrophils % 64.4 % 07/30/16 23:33 Lymphocytes % 27.8 % 07/30/16 23:33 Monocytes % 6.1 % 07/30/16 23:33 Eosinophils % 0.7 % 07/30/16 23: Basophils % 0.6 % 07/30/16 23:33 Neutrophils # 6.1 K/mcL (1.6-8.9) 07/30/16 23:33 Lymphocytes # 2.6 K/mcL (0.6-4.6) 07/30/16 23: Monocytes # 0.6 K/mcL (0.0-1.3) 07/30/16 23:33 Eosinophils # 0.1 K/mcL (0.0-0.6) 07/30/16 23: Basophils # 0.1 K/mcL (0.0-0.2) 07/30/16 23:33 Sodium 143 mEq/L (136-145) 07/30/16 23:33 Potassium 3.9 mEq/L (3.5-4.5) 07/30/16 23: Chloride 110 mEq/L (98-109) H 07/30/16 23:33 Carbon Dioxide 20 mEq/L (19-29) 07/30/16 23:33 BUN 10 mg/dL (8-26) 07/30/16 23: Creatinine 0.87 mg/dL (0.72-1.25) 07/30/16 23:33 Est GFR ( Amer) > 60 (> 60) 07/30/16 23:33 Est GFR (Non-Af Amer) > 60 (> 60) 07/30/16 23:33 BUN/Creatinine Ratio 11 (6-26) 07/30/16 23:33 Glucose 113 mg/dL (70-99) H 07/30/16 23:33 Calculated Osmolality 296 (280-300) 07/30/16 23:33 Calcium 9.2 mg/dL (8.6-10.8) 07/30/16 23:33 Total Bilirubin 0.3 mg/dL (0.2-1.2) 07/30/16 23:33 Direct Bilirubin 0.1 mg/dL (0.0-0.5) 07/30/16 23:33 Indirect Bilirubin 0.2 mg/dL (0.0-1.2) 07/30/16 23:33 AST 23 Units/L (5-34) 07/30/16 23:33 ALT 32 Units/L (0-55) 07/30/16 23:33 Alkaline Phosphatase 101 Units/L (38-126) 07/30/16 23:33 Serum Total Protein 8.6 g/dL (6.0-8.3) H 07/30/16 23:33 Albumin 4.7 g/dL (3.5-5.0) 07/30/16 23:33 Globulin 3.9 g/dL (2.4-3.5) H 07/30/16 23:33 Albumin/Globulin Ratio 1.2 (1.1-2.2) 07/30/16 23:33 TSH 2.668 mcIU/mL (0.350-4.840) 07/30/16 23:33 Urine Color Yellow (Yellow) 07/30/16 23:21 Urine Clarity Clear (Clear) 07/30/16 23:21 Urine pH 6.5 pH Units (5.0-8.0) 07/30/16 23:21 Ur Specific [place] 1.006 (1.010-1.025) L 07/30/16 23:21 Urine Protein Negative mg/dL (Neg-Trace) 07/30/16 23:21 Urine Glucose (UA) Normal mg/dL (Normal) 07/30/16 23:21 Urine Ketones Negative mg/dL (Negative) 07/30/16 23:21 Urine Blood Negative (Negative) 07/30/16 23:21 Urine Nitrite Negative (Negative) 07/30/16 23:21 Urine Bilirubin Negative (Negative) 07/30/16 23:21 Urine Urobilinogen Normal mg/dL (Normal) 07/30/16 23:21 Ur Leukocyte Esterase Negative (Negative) 07/30/16 23:21 Salicylates < 5.0 mg/dL (15-30) L 07/30/16 23:33 Urine Opiates Screen Negative ng/mL (Lbwagu=188) 07/30/16 23:21 Acetaminophen < 1.0 mcg/mL (10-30) L 07/30/16 23:33 Ur Barbiturates Screen Negative ng/mL (Mgqvwi=297) 07/30/16 23:21 Ur Phencyclidine Scrn Negative ng/mL (Cutoff=25) 07/30/16 23:21 Ur Amphetamines Screen Negative ng/mL (Kevxlk=9948) 07/30/16 23:21 U Benzodiazepines Scrn Negative ng/mL (Epvcxg=016) 07/30/16 23:21 Urine Cocaine Screen Negative ng/mL (Cutoff= 300) 07/30/16 23:21 U Marijuana (THC) Screen Negative ng/mL (Cutoff = 50) 07/30/16 23:21 Ethyl Alcohol 49 mg/dL (0-10) H 07/31/16 13:40 Assessment and Plan (1) Depression Current visit: Yes Status: Acute Plan: Admit inpatient for safety and stabilization, Close observation, Suicide Precautions per unit protocol, Encourage participation in unit milieu, Group Therapy, Monitor sleep, Monitor appetite Risks, benefits, side effects, alternatives discussed w/pt: Yes Patient agreeable to treatment: No Qualifiers: Depression Type: other depression Qualified Code(s): F32.89 - Other specified depressive episodes (2) Alcohol dependence with acute alcoholic intoxication Current visit: Yes Status: Acute Plan: Admit inpatient for safety and stabilization, Close observation, Suicide Precautions per unit protocol, Encourage participation in unit milieu, Group Therapy, Monitor sleep, Monitor appetite Additional Plan: Patient is refusing treatment plan, and cooperative and agitated and refusing treatment. Risks, benefits, side effects, alternatives discussed w/pt: Yes Patient agreeable to treatment: No Qualifiers: Complication of substance-induced condition: with delirium Qualified Code(s ): F10.221 - Alcohol dependence with intoxication delirium
--- NOTE | 2016-08-02 11:15 | Psychiatry Progress Note ---
Date of Encounter: 08/02/16 Time of Encounter: 11:13 Subjective Interval history: Patient seen for follow-up. Nursing staff reports he is seclusive to himself, uncooperative was assessments or history, he would not specify goals for his hospitalization or in the future. He is irritable and angry and refused to answer questions. He continued to threaten to kill himself when he leaves the hospital. Review of Systems Psychiatric: Reports: depression, suicidal ideation, hopelessness, irritability , other ( Uncooperative, refused to answer questions) Objective: Exam Patient orientation: Yes Person, Yes Time, Yes Place Level of alertness: Alert Patient appearance: Unkempt, Disheveled, Inappropriate Behavior: agitated, hostile, uncooperative, guarded, impulsive, other (Verbally abusive and profane to the doctor and geriatric social worker) Psychomotor activity: Agitated Eye contact: Avoids Eye Contact Mood description: Angry, Irritable, Other (Agitated) Affect description: constricted, dysphoric, other (Hostile and uncooperative) Speech pattern: Limited, Includes Profanity Speech volume: Soft/Quiet Thought process: Tangential, Thought Blocking Thought content: Yes Suicidal ideation, Yes Homicidal ideation, No Overt delusions Perceptual disturbances: No Auditory hallucinations, No Visual hallucinations Judgment: Limited Insight: Partial Results - Vital Signs Vital Signs: Temp Pulse Resp BP Pulse Ox 98 F 85 16 108/71 95 08/02/16 09:00 08/02/16 09:00 08/02/16 09:00 08/02/16 09:00 07/31/16 13:10 Assessment and Plan (1) Depression Current visit: Yes Status: Acute Plan: Continue hospitalization, Close observation, Suicide Precautions per unit protocol, Encourage participation in unit milieu, Group Therapy, Monitor sleep, Monitor appetite Additional Plan: Staff advised to obtain collateral information from patient's family in order to assess his risk for suicide and discharge plan with safety assurance. If patient refused to authorize the staff to contact the family are well appropriate 10 were probated him to extend hospitalization at the expiration of involuntary admission. Risks, benefits, side effects, alternatives discussed w/pt: Yes Patient agreeable to treatment: No Qualifiers: Depression Type: other depression Qualified Code(s): F32.89 - Other specified depressive episodes (2) Alcohol dependence with acute alcoholic intoxication Current visit: Yes Status: Acute Plan: Continue hospitalization, Close observation, Suicide Precautions per unit protocol, Encourage participation in unit milieu, Group Therapy, Monitor sleep, Monitor appetite Risks, benefits, side effects, alternatives discussed w/pt: Yes Patient agreeable to treatment: No Qualifiers: Complication of substance-induced condition: with delirium Qualified Code(s ): F10.221 - Alcohol dependence with intoxication delirium Consult Discharge Plan - Plan Referrals: NO,PCP [Primary Care Provider] -
--- NOTE | 2016-08-03 15:06 | Psychiatry Progress Note ---
Date of Encounter: 08/03/16 Time of Encounter: 15:00 Subjective Interval history: Patient refused to be seen and is not interested in groups or activities as indicated in notes by director of social work and nursing staff. Appropriate papers were filled out in view of the patient's lack of cooperation and lack of stability at this time. He will continue to endorse suicidal ideation and intention to do so self harm. Treatment team discussed [facility] a [facility] and director of social work started the process. Continued to be uncooperative and refusing treatment plan discussion. Review of Systems Psychiatric: Reports: depression, suicidal ideation, hopelessness, irritability , other ( Uncooperative, refused to answer questions) Objective: Exam Patient orientation: Yes Person, Yes Time, Yes Place Level of alertness: Alert Patient appearance: Unkempt, Disheveled, Inappropriate Additional observations: Patient refused to be seen for follow-up. Behavior: agitated, hostile, uncooperative, guarded, impulsive, other (Verbally abusive and profane to the doctor and director of social work) Psychomotor activity: Agitated Eye contact: Avoids Eye Contact Mood description: Angry, Irritable, Other (Agitated) Affect description: constricted, dysphoric, other (Hostile and uncooperative) Speech pattern: Limited, Includes Profanity Speech volume: Soft/Quiet Thought process: Tangential, Thought Blocking Thought content: Yes Suicidal ideation, Yes Homicidal ideation, No Overt delusions Perceptual disturbances: No Auditory hallucinations, No Visual hallucinations Judgment: Limited Insight: Partial Results - Vital Signs Vital Signs: Temp Pulse Resp BP Pulse Ox 98.0 F 76 16 107/61 95 08/03/16 08:35 08/03/16 08:35 08/03/16 08:35 08/03/16 08:35 07/31/16 13:10 Assessment and Plan (1) Depression Current visit: Yes Status: Acute Plan: Continue hospitalization, Close observation, Suicide Precautions per unit protocol, Encourage participation in unit milieu, Group Therapy, Monitor sleep, Monitor appetite Risks, benefits, side effects, alternatives discussed w/pt: Yes Patient agreeable to treatment: No Qualifiers: Depression Type: other depression Qualified Code(s): F32.89 - Other specified depressive episodes (2) Alcohol dependence with acute alcoholic intoxication Current visit: Yes Status: Acute Plan: Continue hospitalization, Close observation, Suicide Precautions per unit protocol, Encourage participation in unit milieu, Group Therapy, Monitor sleep, Monitor appetite Risks, benefits, side effects, alternatives discussed w/pt: Yes Patient agreeable to treatment: No Qualifiers: Complication of substance-induced condition: with delirium Qualified Code(s ): F10.221 - Alcohol dependence with intoxication delirium Consult Discharge Plan - Plan Referrals: NO,PCP [Primary Care Provider] -
--- NOTE | 2016-08-04 11:40 | Psychiatry Progress Note ---
Date of Encounter: 08/04/16 Time of Encounter: 10:25 Subjective Interval history: Patient seen and interviewed. History and physical examination reviewed. More controlled and cooperative today. Patient is reporting of not feeling good. He is endorsing hopelessness hopelessness and suicidal thoughts and ideations. He is reporting nervousness and anxiety. He reported poor sleep with frequent nightmares and flashbacks from the past trauma. Patient is isolated and withdrawn. Endorsing depressive symptoms and a motivation. Tolerating medications fairly well. Review of Systems Psychiatric: Reports: depression, abnormal sleep pattern, suicidal ideation, hopelessness, irritability Objective: Exam Patient orientation: Yes Person, Yes Time, Yes Place Level of alertness: Alert Patient appearance: Unkempt, Disheveled Behavior: cooperative, nervous, anxious, withdrawn Psychomotor activity: Normal Eye contact: Avoids Eye Contact Mood description: Anxious, Irritable, Other (Agitated) Affect description: constricted, dysphoric, other (Hostile and uncooperative) Speech pattern: Clear, Slowed Speech volume: Soft/Quiet Thought process: [place], Slowed Thinking Thought content: Yes Suicidal ideation, No Overt delusions Perceptual disturbances: No Auditory hallucinations, No Visual hallucinations Judgment: Limited Insight: Partial Results - Vital Signs Vital Signs: Temp Pulse Resp BP Pulse Ox 97.8 F 76 16 106/69 95 08/04/16 08:26 08/04/16 08:26 08/04/16 08:26 08/04/16 08:26 07/31/16 13:10 Assessment and Plan (1) Depression Current visit: Yes Status: Acute Plan: Continue hospitalization, Close observation, Suicide Precautions per unit protocol, Encourage participation in unit milieu, Group Therapy, Monitor sleep, Monitor appetite Additional Plan: Zoloft will be increased to 150 mg daily for depression and anxiety Seroquel will be increased to 300 mg at bedtime for poor sleep Prazosin 1 mg at bedtime will be started for nightmares and flashback Risks, benefits, side effects, alternatives discussed w/pt: Yes Patient agreeable to treatment: No Qualifiers: Depression Type: other depression Qualified Code(s): F32.89 - Other specified depressive episodes (2) Alcohol dependence with acute alcoholic intoxication Current visit: Yes Status: Acute Plan: Continue hospitalization, Close observation, Suicide Precautions per unit protocol, Encourage participation in unit milieu, Group Therapy, Monitor sleep, Monitor appetite Additional Plan: . Risks, benefits, side effects, alternatives discussed w/pt: Yes Patient agreeable to treatment: No Qualifiers: Complication of substance-induced condition: uncomplicated Qualified Code(s ): F10.220 - Alcohol dependence with intoxication, uncomplicated Consult Discharge Plan - Plan Referrals: NO,PCP [Primary Care Provider] -
--- NOTE | 2016-08-05 12:21 | Psychiatry Progress Note ---
Date of Encounter: 08/05/16 Time of Encounter: 12:05 Subjective Interval history: Patient seen and interviewed. Patient continued to verbalize hopelessness helplessness suicidal ideations. Patient is extremely negative and a motivated. Withdrawn and isolated. Encouraged to participate in activities. Patient was given some tools to confront and challenge these negative thoughts. I also discussed at length about patient and his relationship with his 14-year -old daughter and the impact that she will be facing if patient decides to kill himself. I provided some data from previous studies about the impact of pain includes suicide on children and how the risk of their own suicide increases with the parental suicide. Patient is able to comprehend and understand the information that was provided to him and is willing to think over it. Tolerating medications fairly well. Review of Systems Psychiatric: Reports: depression, abnormal sleep pattern, suicidal ideation, hopelessness, irritability Objective: Exam Patient orientation: Yes Person, Yes Time, Yes Place Level of alertness: Alert Patient appearance: Unkempt, Disheveled Behavior: cooperative, nervous, anxious, withdrawn Psychomotor activity: Normal Eye contact: Avoids Eye Contact Mood description: Anxious, Irritable, Other (Agitated) Affect description: constricted, dysphoric, other (Hostile and uncooperative) Speech pattern: Clear, Slowed Speech volume: Soft/Quiet Thought process: [place], Slowed Thinking Thought content: Yes Suicidal ideation, No Overt delusions Perceptual disturbances: No Auditory hallucinations, No Visual hallucinations Judgment: Limited Insight: Partial Results - Vital Signs Vital Signs: Temp Pulse Resp BP Pulse Ox 98 F 85 16 106/72 95 08/05/16 08:11 08/05/16 08:11 08/05/16 08:11 08/05/16 08:11 07/31/16 13:10 Assessment and Plan (1) Depression Current visit: Yes Status: Acute Plan: Continue hospitalization, Close observation, Suicide Precautions per unit protocol, Encourage participation in unit milieu, Group Therapy, Monitor sleep, Monitor appetite Additional Plan: Continue with current medications. Will increase Zoloft 200 mg daily from tomorrow. Patient is awaiting placement at [facility]. Risks, benefits, side effects, alternatives discussed w/pt: Yes Patient agreeable to treatment: No Qualifiers: Depression Type: other depression Qualified Code(s): F32.89 - Other specified depressive episodes (2) Alcohol dependence with acute alcoholic intoxication Current visit: Yes Status: Acute Plan: Continue hospitalization, Close observation, Suicide Precautions per unit protocol, Encourage participation in unit milieu, Group Therapy, Monitor sleep, Monitor appetite Risks, benefits, side effects, alternatives discussed w/pt: Yes Patient agreeable to treatment: No Qualifiers: Complication of substance-induced condition: uncomplicated Qualified Code(s ): F10.220 - Alcohol dependence with intoxication, uncomplicated Consult Discharge Plan - Plan Referrals: NO,PCP [Primary Care Provider] -
[2016-08-06] MEDS: hydrOXYzine pamoate 25 MG CAPSULE PO PRN (14:30)
--- NOTE | 2016-08-06 14:32 | Psychiatry Progress Note ---
Date of Encounter: 08/06/16 Time of Encounter: 14:27 Subjective Interval history: Patient is seen for follow-up. He continue to endorse suicidal ideation and hopelessness but he told me that he has a good day, has some energy. He will complain of feeling anxious and having difficulty sleeping and feeling his mood is up and down. He is worried about his disposition and I explained to him that we do not have a specific disposition at this time but we want to have adequate post discharge treatment plan. I discussed with him adding Depakote as a mood stabilizer , benefits and side effects were discussed and he is agreeable. He was encouraged to attend groups and participate in activities. Review of Systems Psychiatric: Reports: depression, anxiety, abnormal sleep pattern, suicidal ideation, hopelessness, irritability Objective: Exam Patient orientation: Yes Person, Yes Time, Yes Place Level of alertness: Alert Patient appearance: Appropriate, Unkempt, Disheveled Behavior: cooperative, nervous, anxious, withdrawn Psychomotor activity: Normal Eye contact: Avoids Eye Contact Mood description: Anxious, Irritable, Other (Agitated) Affect description: constricted, dysphoric, other (Hostile and uncooperative) Speech pattern: Normal tone, Clear, Slowed Speech volume: Soft/Quiet Thought process: [place], [place] Thought content: Yes Suicidal ideation, No Overt delusions Perceptual disturbances: No Auditory hallucinations, No Visual hallucinations Judgment: Limited Insight: Partial Results - Vital Signs Vital Signs: Temp Pulse Resp BP Pulse Ox 97.6 F 93 14 112/62 95 08/06/16 08:52 08/06/16 08:52 08/06/16 08:52 08/06/16 08:52 07/31/16 13:10 Assessment and Plan (1) Depression Current visit: Yes Status: Acute Plan: Continue hospitalization, Close observation, Suicide Precautions per unit protocol, Encourage participation in unit milieu, Group Therapy, Monitor sleep, Monitor appetite Additional Plan: Will add Depakote 500 mg at bedtime as more stabilizer, benefits and side effects were discussed and patient is agreeable to start. Risks, benefits, side effects, alternatives discussed w/pt: Yes Patient agreeable to treatment: No Qualifiers: Depression Type: other depression Qualified Code(s): F32.89 - Other specified depressive episodes (2) Alcohol dependence with acute alcoholic intoxication Current visit: Yes Status: Acute Plan: Continue hospitalization, Close observation, Suicide Precautions per unit protocol, Encourage participation in unit milieu, Group Therapy, Monitor sleep, Monitor appetite Risks, benefits, side effects, alternatives discussed w/pt: Yes Patient agreeable to treatment: No Qualifiers: Complication of substance-induced condition: uncomplicated Qualified Code(s ): F10.220 - Alcohol dependence with intoxication, uncomplicated Consult Discharge Plan - Plan Referrals: NO,PCP [Primary Care Provider] -
[2016-08-06] MEDS ORDERED: Divalproex (12 HR) 500 MG TABLET PO SCH (21:00)
--- NOTE | 2016-08-07 14:34 | Psychiatry Progress Note ---
Date of Encounter: 08/07/16 Time of Encounter: 14:23 Subjective Interval history: Deficiency for follow-up. She self-reports is compliant with medication and attend some groups but he continue to be irritable and continued to make suicidal statements. She tells me that day, while sleep, initial insomnia. He is motivated to take medications to feel better. Probable cause hearing was done this afternoon and probable cause was found and final hearing will be scheduled. Review of Systems Psychiatric: Reports: depression, anxiety, abnormal sleep pattern, suicidal ideation, hopelessness, irritability Objective: Exam Patient orientation: Yes Person, Yes Time, Yes Place Level of alertness: Alert Patient appearance: Appropriate, Unkempt Behavior: cooperative, nervous, anxious, withdrawn Psychomotor activity: Normal Eye contact: Minimal Contact Mood description: Anxious, Irritable, Other (Agitated) Affect description: constricted, dysphoric, other (Hostile and uncooperative) Speech pattern: Normal tone, Clear, Slowed Speech volume: Soft/Quiet Thought process: [place], [place] Thought content: Yes Suicidal ideation, No Overt delusions Perceptual disturbances: No Auditory hallucinations, No Visual hallucinations Judgment: Limited Insight: Partial Results - Vital Signs Vital Signs: Temp Pulse Resp BP Pulse Ox 97.5 F L 85 16 111/80 95 08/07/16 08:47 08/07/16 08:47 08/07/16 08:47 08/07/16 08:47 07/31/16 13:10 Assessment and Plan (1) Depression Current visit: Yes Status: Acute Plan: Continue hospitalization, Close observation, Suicide Precautions per unit protocol, Encourage participation in unit milieu, Group Therapy, Monitor sleep, Monitor appetite Additional Plan: We will increase Depakote to 1000 milligram at bedtime Risks, benefits, side effects, alternatives discussed w/pt: Yes Patient agreeable to treatment: No Qualifiers: Depression Type: other depression Qualified Code(s): F32.89 - Other specified depressive episodes (2) Alcohol dependence with acute alcoholic intoxication Current visit: Yes Status: Acute Plan: Continue hospitalization, Close observation, Suicide Precautions per unit protocol, Encourage participation in unit milieu, Group Therapy, Monitor sleep, Monitor appetite Risks, benefits, side effects, alternatives discussed w/pt: Yes Patient agreeable to treatment: No Qualifiers: Complication of substance-induced condition: uncomplicated Qualified Code(s ): F10.220 - Alcohol dependence with intoxication, uncomplicated Consult Discharge Plan - Plan Referrals: NO,PCP [Primary Care Provider] -
[2016-08-07] MEDS: hydrOXYzine pamoate 25 MG CAPSULE PO PRN (14:45)
[2016-08-07] MEDS ORDERED: Divalproex (12 HR) 500 MG TABLET PO SCH (21:00)
--- NOTE | 2016-08-08 13:27 | Psychiatry Progress Note ---
Date of Encounter: 08/08/16 Time of Encounter: 12:45 Subjective Interval history: Patient is here for follow-up. Nursing staff reports he is complaining of poor sleep and irritability, states that his mind is racing. He continued to express suicidal ideation. He participated in some groups and compliant with his medication. I discussed with him some medication changes and he is agreeable. Orders were given. Discharge planning is ongoing. Review of Systems Psychiatric: Reports: depression, anxiety, abnormal sleep pattern, suicidal ideation, hopelessness, irritability Objective: Exam Patient orientation: Yes Person, Yes Time, Yes Place Level of alertness: Alert Patient appearance: Appropriate, Unkempt Behavior: cooperative, nervous, anxious, withdrawn Psychomotor activity: Normal Eye contact: Minimal Contact Mood description: Anxious, Irritable, Other (Agitated) Affect description: constricted, dysphoric, other (Hostile and uncooperative) Speech pattern: Normal tone, Clear, Slowed Speech volume: Soft/Quiet Thought process: [place], [place] Thought content: Yes Suicidal ideation, No Overt delusions Perceptual disturbances: No Auditory hallucinations, No Visual hallucinations Judgment: Limited Insight: Partial Results - Vital Signs Vital Signs: Temp Pulse Resp BP Pulse Ox 97.5 F L 107 16 95/60 95 08/08/16 09:00 08/08/16 09:00 08/08/16 09:00 08/08/16 09:00 07/31/16 13:10 Assessment and Plan (1) Depression Current visit: Yes Status: Acute Plan: Continue hospitalization, Close observation, Suicide Precautions per unit protocol, Encourage participation in unit milieu, Group Therapy, Monitor sleep, Monitor appetite Additional Plan: Will discontinue Seroquel. We will start Haldol 10 mg twice a day. We will increase Depakote to 1000 mg twice a day. Depakote level ordered for August 10. Risks, benefits, side effects, alternatives discussed w/pt: Yes Patient agreeable to treatment: No Qualifiers: Depression Type: other depression Qualified Code(s): F32.89 - Other specified depressive episodes (2) Alcohol dependence with acute alcoholic intoxication Current visit: Yes Status: Acute Plan: Continue hospitalization, Close observation, Suicide Precautions per unit protocol, Encourage participation in unit milieu, Group Therapy, Monitor sleep, Monitor appetite Risks, benefits, side effects, alternatives discussed w/pt: Yes Patient agreeable to treatment: No Qualifiers: Complication of substance-induced condition: uncomplicated Qualified Code(s ): F10.220 - Alcohol dependence with intoxication, uncomplicated Consult Discharge Plan - Plan Referrals: NO,PCP [Primary Care Provider] -
[2016-08-08] MEDS: Divalproex (12 HR) 500 MG TABLET PO SCH (21:18)
[2016-08-09] MEDS: Divalproex (12 HR) 500 MG TABLET PO SCH ×2 (08:27→21:20)
--- NOTE | 2016-08-09 14:20 | Psychiatry Progress Note ---
Date of Encounter: 08/09/16 Time of Encounter: 14:00 Subjective Interval history: Patient is here for follow-up. He is tolerating medication changes and reports that his racing thoughts are slowing down. His sleep is improving. Continued to endorse suicidal ideation. Discharge planning is ongoing to find stepdown where he can be safe and monitored. He has been compliant with medication and attend some groups. Review of Systems Psychiatric: Reports: depression, anxiety, abnormal sleep pattern, suicidal ideation, hopelessness Objective: Exam Patient orientation: Yes Person, Yes Time, Yes Place Level of alertness: Alert Patient appearance: Appropriate, Unkempt Behavior: cooperative, nervous, anxious, withdrawn Psychomotor activity: Normal Eye contact: Minimal Contact Mood description: Anxious, Irritable, Other (Agitated) Affect description: constricted, dysphoric, other (Hostile and uncooperative) Speech pattern: Normal tone, Clear, Slowed Speech volume: Soft/Quiet Thought process: [place], [place] Thought content: Yes Suicidal ideation, No Overt delusions Perceptual disturbances: No Auditory hallucinations, No Visual hallucinations Judgment: Limited Insight: Partial Results - Vital Signs Vital Signs: Temp Pulse Resp BP Pulse Ox 98.7 F 88 16 105/61 95 08/09/16 09:00 08/09/16 09:00 08/09/16 09:00 08/09/16 09:00 07/31/16 13:10 Assessment and Plan (1) Depression Current visit: Yes Status: Acute Plan: Continue hospitalization, Close observation, Suicide Precautions per unit protocol, Encourage participation in unit milieu, Group Therapy, Monitor sleep, Monitor appetite Risks, benefits, side effects, alternatives discussed w/pt: Yes Patient agreeable to treatment: No Qualifiers: Depression Type: other depression Qualified Code(s): F32.89 - Other specified depressive episodes (2) Alcohol dependence with acute alcoholic intoxication Current visit: Yes Status: Acute Plan: Continue hospitalization, Close observation, Suicide Precautions per unit protocol, Encourage participation in unit milieu, Group Therapy, Monitor sleep, Monitor appetite Risks, benefits, side effects, alternatives discussed w/pt: Yes Patient agreeable to treatment: No Qualifiers: Complication of substance-induced condition: uncomplicated Qualified Code(s ): F10.220 - Alcohol dependence with intoxication, uncomplicated Consult Discharge Plan - Plan Referrals: NO,PCP [Primary Care Provider] -
[2016-08-10] MEDS: Divalproex (12 HR) 500 MG TABLET PO SCH (08:48)
--- NOTE | 2016-08-10 15:09 | Psychiatry Progress Note ---
Date of Encounter: 08/10/16 Time of Encounter: 15:06 Subjective Interval history: Patient seen for follow-up. He was reported slightly sedated and his Depakote level was high. He did not complain of any lethargy, he slept well, his racing is better . He was interviewed by by someone from the [email or web address] to decide on his placement. He continued to make suicidal statements. He is not agitated or irritable.he reports muscles of his upper arm and neck are tight, he is able to move his neck in all direction and there is no spasm. Review of Systems Psychiatric: Reports: depression, anxiety, abnormal sleep pattern, suicidal ideation, hopelessness Objective: Exam Patient orientation: Yes Person, Yes Time, Yes Place Level of alertness: Alert Patient appearance: Appropriate, Unkempt Behavior: calm, cooperative, withdrawn Psychomotor activity: Normal Eye contact: Minimal Contact Mood description: Anxious, Irritable, Other (Agitated) Affect description: congruent with mood, constricted, dysphoric, other (Hostile and uncooperative) Speech pattern: Normal tone, Clear, Slowed Speech volume: Soft/Quiet Thought process: Logical, Linear, [place] Thought content: Yes Suicidal ideation, No Overt delusions Perceptual disturbances: No Auditory hallucinations, No Visual hallucinations Judgment: Limited Insight: Partial Results - Vital Signs Vital Signs: Temp Pulse Resp BP Pulse Ox 98.6 F 111 16 91/70 95 08/10/16 09:00 08/10/16 09:00 08/10/16 09:00 08/10/16 09:00 07/31/16 13:10 - Labs Labs: Laboratory Results - last 24 hr 08/10/16 08:08 Valproic Acid 146.68 H Assessment and Plan (1) Alcohol dependence with acute alcoholic intoxication Current visit: Yes Status: Acute Plan: Continue hospitalization, Close observation, Suicide Precautions per unit protocol, Encourage participation in unit milieu, Group Therapy, Monitor sleep, Monitor appetite Risks, benefits, side effects, alternatives discussed w/pt: Yes Patient agreeable to treatment: No Qualifiers: Complication of substance-induced condition: uncomplicated Qualified Code(s ): F10.220 - Alcohol dependence with intoxication, uncomplicated (2) Severe major depression with psychotic features Current visit: Yes Status: Acute Plan: Continue hospitalization, Close observation, Suicide Precautions per unit protocol, Encourage participation in unit milieu, Group Therapy, Monitor sleep, Monitor appetite Additional Plan: Will add Cogentin 1 mg twice a day. Discontinue Depakote order and starts Depakote 1000 mg ER on August 11. Also give Cogentin 2 mg IM one time for extrapyramidal symptoms. Risks, benefits, side effects, alternatives discussed w/pt: Yes Patient agreeable to treatment: Yes Consult Discharge Plan - Plan Referrals: NO,PCP [Primary Care Provider] -
--- NOTE | 2016-08-11 14:00 | Psychiatry Progress Note ---
Date of Encounter: 08/11/16 Time of Encounter: 13:49 Subjective Interval history: Patient is here for follow-up. He will continue the self isolates, continues to endorse suicidal ideation. He cannot decide whether he should live with family or by himself. He denies any side effect from the medication and denies any muscle spasm. Reports racing slowed down and sleep improved. His placements plans will be updated on Saturday. Review of Systems Psychiatric: Reports: depression, anxiety, abnormal sleep pattern, suicidal ideation, hopelessness Objective: Exam Patient orientation: Yes Person, Yes Time, Yes Place Level of alertness: Alert Patient appearance: Appropriate, Unkempt Behavior: calm, cooperative, withdrawn Psychomotor activity: Normal Eye contact: Maintains Eye Contact Mood description: Anxious, Irritable, Other (Agitated) Affect description: congruent with mood, constricted, dysphoric, other (Hostile and uncooperative) Speech pattern: Normal rate, Normal rhythm, Normal tone, Clear, Slowed Speech volume: Soft/Quiet Thought process: Logical, Linear, [place] Thought content: Yes Suicidal ideation, No Overt delusions Perceptual disturbances: No Auditory hallucinations, No Visual hallucinations Judgment: Limited Insight: Partial Results - Vital Signs Vital Signs: Temp Pulse Resp BP Pulse Ox 98.6 F 94 16 102/69 95 08/11/16 08:24 08/11/16 08:24 08/11/16 08:24 08/11/16 08:24 07/31/16 13:10 - Labs Labs: Laboratory Results - last 24 hr 08/11/16 09:48 Valproic Acid 51.23 Assessment and Plan (1) Alcohol dependence with acute alcoholic intoxication Current visit: Yes Status: Acute Plan: Continue hospitalization, Close observation, Suicide Precautions per unit protocol, Encourage participation in unit milieu, Group Therapy, Monitor sleep, Monitor appetite Risks, benefits, side effects, alternatives discussed w/pt: Yes Patient agreeable to treatment: No Qualifiers: Complication of substance-induced condition: uncomplicated Qualified Code(s ): F10.220 - Alcohol dependence with intoxication, uncomplicated (2) Severe major depression with psychotic features Current visit: Yes Status: Acute Plan: Continue hospitalization, Close observation, Suicide Precautions per unit protocol, Encourage participation in unit milieu, Group Therapy, Monitor sleep, Monitor appetite Risks, benefits, side effects, alternatives discussed w/pt: Yes Patient agreeable to treatment: Yes Consult Discharge Plan - Plan Referrals: NO,PCP [Primary Care Provider] -
[2016-08-11] MEDS: Divalproex (24 HR) 500 MG TABLET PO SCH (21:12)
--- NOTE | 2016-08-12 13:32 | Psychiatry Progress Note ---
Date of Encounter: 08/12/16 Time of Encounter: 13:00 Subjective Interval history: Patient is seen for follow-up. Staff report he continued to endorse suicidal ideation without plan, is compliant with medication and reports improved sleep and less racing. He denies any side effects. He tell me how the visit was the family yesterday that went well but he still not sure about his discharge plans or placement. I discussed with him medication compliance and side effects and she acknowledged that information. Review of Systems Psychiatric: Reports: depression, anxiety, abnormal sleep pattern, suicidal ideation, hopelessness Objective: Exam Patient orientation: Yes Person, Yes Time, Yes Place Level of alertness: Alert Patient appearance: Appropriate, Unkempt Behavior: calm, cooperative, withdrawn Psychomotor activity: Normal Eye contact: Maintains Eye Contact Mood description: Anxious, Irritable, Other (Agitated) Affect description: congruent with mood, constricted, dysphoric, other (Hostile and uncooperative) Speech pattern: Normal rate, Normal rhythm, Normal tone, Clear, Slowed Speech volume: Soft/Quiet Thought process: Logical, Linear, [place] Thought content: Yes Suicidal ideation, No Overt delusions Perceptual disturbances: No Auditory hallucinations, No Visual hallucinations Judgment: Limited Insight: Partial Results - Vital Signs Vital Signs: Temp Pulse Resp BP Pulse Ox 98.4 F 94 16 111/76 95 08/12/16 08:52 08/12/16 08:52 08/12/16 08:52 08/12/16 08:52 07/31/16 13:10 Assessment and Plan (1) Alcohol dependence with acute alcoholic intoxication Current visit: Yes Status: Acute Plan: Continue hospitalization, Close observation, Suicide Precautions per unit protocol, Encourage participation in unit milieu, Group Therapy, Monitor sleep, Monitor appetite Risks, benefits, side effects, alternatives discussed w/pt: Yes Patient agreeable to treatment: No Qualifiers: Complication of substance-induced condition: uncomplicated Qualified Code(s ): F10.220 - Alcohol dependence with intoxication, uncomplicated (2) Severe major depression with psychotic features Current visit: Yes Status: Acute Plan: Continue hospitalization, Close observation, Suicide Precautions per unit protocol, Encourage participation in unit milieu, Group Therapy, Monitor sleep, Monitor appetite Risks, benefits, side effects, alternatives discussed w/pt: Yes Patient agreeable to treatment: Yes Consult Discharge Plan - Plan Referrals: NO,PCP [Primary Care Provider] -
[2016-08-12] MEDS: Divalproex (24 HR) 500 MG TABLET PO SCH (21:04)
[2016-08-13] MEDS: hydrOXYzine pamoate 25 MG CAPSULE PO PRN (11:23)
--- NOTE | 2016-08-13 19:36 | Psychiatry Progress Note ---
Date of Encounter: 08/13/16 Time of Encounter: 19:33 Subjective Interval history: Pt reports that he has been having anxiety and does not think the Zoloft is helping him. His mind keeps racing and he has a lot of negative thoughts. He also has difficulty sleeping. Review of Systems Constitutional: Denies: fever, chills, weakness, weight change Eyes: Denies: eye pain, vision change Ears, Nose, Throat: Denies: ear pain, throat pain, dental pain, hearing loss, congestion Cardiovascular: Denies: chest pain, palpitations, dyspnea on exertion Respiratory: Denies: cough, dyspnea, wheezes Gastrointestinal: Denies: abdominal pain, nausea, vomiting, diarrhea, constipation Musculoskeletal: Denies: joint swelling, joint pain Neurological: Denies: headache, weakness, numbness, memory loss Psychiatric: Reports: depression, anxiety, abnormal sleep pattern, suicidal ideation, hopelessness Objective: Exam Patient orientation: Yes Person, Yes Time, Yes Place Level of alertness: Alert Patient appearance: Appropriate, Unkempt Behavior: cooperative, anxious, withdrawn Psychomotor activity: Normal Eye contact: Maintains Eye Contact Mood description: Anxious, Irritable, Other (Agitated) Affect description: congruent with mood, constricted, dysphoric, other (Hostile and uncooperative) Speech pattern: Normal rate, Normal rhythm, Normal tone, Clear, Slowed Speech volume: Soft/Quiet Thought process: Logical, Linear, [place] Thought content: Yes Suicidal ideation, No Overt delusions Perceptual disturbances: No Auditory hallucinations, No Visual hallucinations Judgment: Limited Insight: Partial Results - Vital Signs Vital Signs: Temp Pulse Resp BP Pulse Ox 97.7 F 103 16 123/79 95 08/13/16 09:00 08/13/16 09:00 08/13/16 09:00 08/13/16 09:00 07/31/16 13:10 Assessment and Plan (1) Severe major depression with psychotic features Current visit: Yes Status: Acute Plan: Continue hospitalization, Close observation, Suicide Precautions per unit protocol, Encourage participation in unit milieu, Group Therapy, Monitor sleep, Monitor appetite Additional Plan: Will start on Trileptal to address mood and anxiety symptoms. Risks, benefits, side effects, alternatives discussed w/pt: Yes Patient agreeable to treatment: Yes Consult Discharge Plan - Plan Referrals: NO,PCP [Primary Care Provider] -
[2016-08-13] MEDS: Divalproex (24 HR) 500 MG TABLET PO SCH (21:20)
[2016-08-13] MEDS: OXcarbazepine 150 MG TABLET PO SCH (21:21)
[2016-08-14] MEDS: OXcarbazepine 150 MG TABLET PO SCH ×2 (08:23→21:30)
--- NOTE | 2016-08-14 18:02 | Psychiatry Progress Note ---
Date of Encounter: 08/14/16 Time of Encounter: 18:00 Subjective Interval history: Pt reports that he has been having depressive and suicidal thoughts . He slept but woke up twice last night. He is trying to puch these negative thoughts but its hard to do it. Review of Systems Psychiatric: Reports: depression, anxiety, abnormal sleep pattern, suicidal ideation, hopelessness Objective: Exam Patient orientation: Yes Person, Yes Time, Yes Place Level of alertness: Alert Patient appearance: Appropriate, Unkempt Behavior: cooperative, anxious, withdrawn Psychomotor activity: Normal Eye contact: Maintains Eye Contact Mood description: Anxious, Irritable, Other (Agitated) Affect description: congruent with mood, constricted, dysphoric, other (Hostile and uncooperative) Speech pattern: Normal rate, Normal rhythm, Normal tone, Clear, Slowed Speech volume: Soft/Quiet Thought process: Logical, Linear, [place] Thought content: Yes Suicidal ideation, No Overt delusions Perceptual disturbances: No Auditory hallucinations, No Visual hallucinations Judgment: Limited Insight: Partial Results - Vital Signs Vital Signs: Temp Pulse Resp BP Pulse Ox 97.2 F L 116 16 111/79 95 08/14/16 08:57 08/14/16 08:57 08/14/16 08:57 08/14/16 08:57 07/31/16 13:10 Assessment and Plan (1) Severe major depression with psychotic features Current visit: Yes Status: Acute Plan: Continue hospitalization, Close observation, Suicide Precautions per unit protocol, Encourage participation in unit milieu, Group Therapy, Monitor sleep, Monitor appetite Additional Plan: Increase Doxepin to 100 mg hs. Increase Trileptal and check Chem 7 Risks, benefits, side effects, alternatives discussed w/pt: Yes Patient agreeable to treatment: Yes Consult Discharge Plan - Plan Referrals: NO,PCP [Primary Care Provider] -
[2016-08-14] MEDS: Divalproex (24 HR) 500 MG TABLET PO SCH (21:30)
[2016-08-15] MEDS: OXcarbazepine 150 MG TABLET PO SCH ×2 (09:01→22:26)
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
[2016-08-15 18:15] LABS: BUN/Creatinine Ratio 14 (6-26); Blood Urea Nitrogen 12 mg/dL (8-26); Calcium 8.7 mg/dL (8.6-10.8); Carbon Dioxide 26 mEq/L (19-29); Chloride 102 mEq/L (98-109); Glucose 100 mg/dL (70-99); Osmolality,Calculated 282 (280-300); Potassium 4.1 mEq/L (3.5-4.5); Sodium 136 mEq/L (136-145); eGFR For African Americans > 60 (> 60); eGFR For Non-African Americans > 60 (> 60)
[2016-08-15] MEDS ORDERED: Lithium Carbonate ER 300 MG TABLET.ER PO SCH (21:00)
[2016-08-15] MEDS: Divalproex (24 HR) 500 MG TABLET PO SCH (22:29)
[2016-08-16] MEDS: OXcarbazepine 150 MG TABLET PO SCH ×2 (08:28→20:46)
--- NOTE | 2016-08-16 18:09 | Psychiatry Progress Note ---
Date of Encounter: 08/16/16 Time of Encounter: 18:07 Subjective Interval history: Pt reports taht he is continuing to have anxiety about leaving the hospital. He denies any side effects to [place] and other meds. Review of Systems Psychiatric: Reports: depression, anxiety Objective: Exam Patient orientation: Yes Person, Yes Time, Yes Place Level of alertness: Alert Patient appearance: Appropriate, Unkempt Behavior: cooperative Psychomotor activity: Normal Eye contact: Maintains Eye Contact Mood description: Anxious, Other (Agitated) Affect description: congruent with mood, constricted, dysphoric, other (Hostile and uncooperative) Speech pattern: Normal rate, Normal rhythm, Normal tone, Clear, Slowed Speech volume: Soft/Quiet Thought process: Logical, Linear, [place] Thought content: Yes Suicidal ideation, No Overt delusions Perceptual disturbances: No Auditory hallucinations, No Visual hallucinations Judgment: Limited Insight: Partial Results - Vital Signs Vital Signs: Temp Pulse Resp BP Pulse Ox 97.4 F L 85 16 114/72 95 08/16/16 09:00 08/16/16 09:00 08/16/16 09:00 08/16/16 09:00 07/31/16 13:10 - Labs Labs: Laboratory Results - last 24 hr 08/15/16 16:32 Sodium 136 Potassium 4.1 Chloride 102 Carbon Dioxide 26 BUN 12 Creatinine 0.84 Est GFR ( Amer) > 60 Est GFR (Non-Af Amer) > 60 BUN/Creatinine Ratio 14 Glucose 100 H Calculated Osmolality 282 Calcium 8.7 Assessment and Plan (1) Severe major depression with psychotic features Current visit: Yes Status: Acute Plan: Continue hospitalization, Close observation, Suicide Precautions per unit protocol, Encourage participation in unit milieu, Group Therapy, Monitor sleep, Monitor appetite Additional Plan: Increase Trileptal and [place] for mood and anxiety. Risks, benefits, side effects, alternatives discussed w/pt: Yes Patient agreeable to treatment: Yes Consult Discharge Plan - Plan Referrals: [facility] [Outside]
[2016-08-16] MEDS: Lithium Carbonate ER 300 MG TABLET.ER PO SCH (20:45)
[2016-08-16] MEDS: Divalproex (24 HR) 500 MG TABLET PO SCH (20:46)
[2016-08-16] MEDS: hydrOXYzine pamoate 25 MG CAPSULE PO PRN (22:43)
[2016-08-17] MEDS: hydrOXYzine pamoate 25 MG CAPSULE PO PRN ×2 (02:36→13:29)
[2016-08-17] MEDS: Lithium Carbonate ER 300 MG TABLET.ER PO SCH ×2 (08:45→20:41)
[2016-08-17] MEDS: OXcarbazepine 150 MG TABLET PO SCH ×2 (08:45→20:40)
--- NOTE | 2016-08-17 17:57 | Psychiatry Progress Note ---
Date of Encounter: 08/17/16 Time of Encounter: 17:55 Subjective Interval history: Pt reports that he is having middle insomnia. He continues to c/o depression and fleeting suicidal thoughts that are chronic in nature and have not responded to any treatment. Review of Systems Psychiatric: Reports: depression, anxiety, abnormal sleep pattern Objective: Exam Patient orientation: Yes Person, Yes Time, Yes Place Level of alertness: Alert Patient appearance: Appropriate, Unkempt Behavior: cooperative Psychomotor activity: Normal Eye contact: Maintains Eye Contact Mood description: Anxious, Other (Agitated) Affect description: congruent with mood, constricted, dysphoric, other (Hostile and uncooperative) Speech pattern: Normal rate, Normal rhythm, Normal tone, Clear, Slowed Speech volume: Soft/Quiet Thought process: Logical, Linear, [place] Thought content: Yes Suicidal ideation, No Overt delusions Perceptual disturbances: No Auditory hallucinations, No Visual hallucinations Judgment: Limited Insight: Partial Results - Vital Signs Vital Signs: Temp Pulse Resp BP Pulse Ox 97.8 F 96 16 109/74 95 08/17/16 09:00 08/17/16 09:00 08/17/16 09:00 08/17/16 09:00 07/31/16 13:10 Assessment and Plan (1) Severe major depression with psychotic features Current visit: Yes Status: Acute Plan: Continue hospitalization, Close observation, Suicide Precautions per unit protocol, Encourage participation in unit milieu, Group Therapy, Monitor sleep, Monitor appetite Additional Plan: Increase Trileptal and [place] for mood and anxiety. Will add [place] for paranoia. Risks, benefits, side effects, alternatives discussed w/pt: Yes Patient agreeable to treatment: Yes Consult Discharge Plan - Plan Referrals: [facility] [Outside] (Your case therapist, Lars, will see you the day of your discharge. You will begin groups throughout the day, every weekday, in the clinic on discharge. You will also see)
[2016-08-17] MEDS: Divalproex (24 HR) 500 MG TABLET PO SCH (20:41)
[2016-08-17] MEDS: Baclofen 10 MG TABLET PO SCH (20:41)
[2016-08-18] MEDS: Baclofen 10 MG TABLET PO SCH ×2 (09:00→20:52)
[2016-08-18] MEDS: Lithium Carbonate ER 300 MG TABLET.ER PO SCH (09:01)
[2016-08-18] MEDS: OXcarbazepine 150 MG TABLET PO SCH ×2 (09:32→20:54)
--- NOTE | 2016-08-18 16:36 | Psychiatry Progress Note ---
Date of Encounter: 08/18/16 Time of Encounter: 16:33 Subjective Interval history: Pt reports that he had a rough time yesterday having a conflict with another peer. He also claims of hearing voices telling him to hurt himself. States taht he will not stop if he is outside hospital. It is because he is in the hospital that he did not proceed with tying a sheet around his neck. Review of Systems Psychiatric: Reports: depression, anxiety, abnormal sleep pattern Objective: Exam Patient orientation: Yes Person, Yes Time, Yes Place Level of alertness: Alert Patient appearance: Appropriate, Unkempt Additional observations: Pt has been in no distress and has not been observed to be having hallucinations. Has good attention and concentration. Continues to be dependent on hospital for "safety". His claims of having psychosis and suicidal obsessions are not observed in his presentation. On the contrary his actions correlate well with dependent personality traits of wanting others to cater to his needs. Behavior: cooperative, other Psychomotor activity: Normal Eye contact: Maintains Eye Contact Mood description: Anxious, Other (Agitated) Affect description: congruent with mood, constricted, dysphoric, other (Hostile and uncooperative) Speech pattern: Normal rate, Normal rhythm, Normal tone, Clear, Slowed Speech volume: Soft/Quiet Thought process: Logical, Linear, [place] Thought content: Yes Suicidal ideation, No Overt delusions Perceptual disturbances: No Auditory hallucinations, No Visual hallucinations Judgment: Limited Insight: Partial Results - Vital Signs Vital Signs: Temp Pulse Resp BP Pulse Ox 97.6 F 96 16 116/83 95 08/18/16 09:00 08/18/16 09:00 08/18/16 09:00 08/18/16 09:00 07/31/16 13:10 Assessment and Plan (1) Severe major depression with psychotic features Current visit: Yes Status: Acute Plan: Continue hospitalization, Close observation, Suicide Precautions per unit protocol, Encourage participation in unit milieu, Group Therapy, Monitor sleep, Monitor appetite Additional Plan: Pt has escalated his desperate actions to convince staff that he is psychotic and therefore needs to stay in the hospital for longer period. This is in contradiction to staff observations . He clearly does not have significant level of distress or depression. Risks, benefits, side effects, alternatives discussed w/pt: Yes Patient agreeable to treatment: Yes Consult Discharge Plan - Plan Referrals: [facility] [Outside] (Your nurse case manager, Lars, will see you the day of your discharge. You will begin groups throughout the day, every weekday, in the clinic on discharge. You will also see)
[2016-08-18] MEDS: hydrOXYzine pamoate 25 MG CAPSULE PO PRN (17:47)
[2016-08-18] MEDS: Divalproex (24 HR) 500 MG TABLET PO SCH (20:48)
[2016-08-18] MEDS: Lithium Carbonate ER 450 MG TABLET.ER PO SCH (20:49)
[2016-08-19] MEDS: hydrOXYzine pamoate 25 MG CAPSULE PO PRN ×2 (00:56→18:44)
[2016-08-19] MEDS: Baclofen 10 MG TABLET PO SCH ×2 (08:19→20:23)
[2016-08-19] MEDS: OXcarbazepine 150 MG TABLET PO SCH ×2 (08:19→20:23)
[2016-08-19] MEDS: Lithium Carbonate ER 450 MG TABLET.ER PO SCH ×2 (08:20→20:24)
--- NOTE | 2016-08-19 12:36 | Psychiatry Progress Note ---
Date of Encounter: 08/19/16 Time of Encounter: 12:32 Subjective Interval history: Pt reports he feels the same as always, racing thoughts and self harm thoughts. Does not want to leave the hospital. Did not sleep well last night. Also c/o stuttering which he has as baseline but a bit more now. He prefers though to give more time to Li to find out if it helps him or not. Review of Systems Psychiatric: Reports: depression, anxiety, abnormal sleep pattern Objective: Exam Patient orientation: Yes Person, Yes Time, Yes Place Level of alertness: Alert Patient appearance: Appropriate, Unkempt Behavior: cooperative, other Psychomotor activity: Normal Eye contact: Maintains Eye Contact Mood description: Depressed, Anxious, Other (Agitated) Affect description: congruent with mood, constricted, dysphoric, other (Hostile and uncooperative) Speech pattern: Normal rate, Normal rhythm, Normal tone, Clear, Slowed Speech volume: Soft/Quiet Thought process: Logical, Linear, [place] Thought content: Yes Suicidal ideation, No Overt delusions Perceptual disturbances: No Auditory hallucinations, No Visual hallucinations Judgment: Limited Insight: Partial Results - Vital Signs Vital Signs: Temp Pulse Resp BP Pulse Ox 98.1 F 103 16 118/81 95 08/19/16 09:00 08/19/16 09:00 08/19/16 09:00 08/19/16 09:00 07/31/16 13:10 Assessment and Plan (1) Severe major depression with psychotic features Current visit: Yes Status: Acute Plan: Continue hospitalization, Close observation, Suicide Precautions per unit protocol, Encourage participation in unit milieu, Group Therapy, Monitor sleep, Monitor appetite Additional Plan: Pt wants to remain on [place] for another week atleast to see if he responds or not. Developing tolerance to Doxepin so will switch to Seroquel for sleep. Risks, benefits, side effects, alternatives discussed w/pt: Yes Patient agreeable to treatment: Yes Consult Discharge Plan - Plan Referrals: [facility] [Outside] (Your case supervisor, Lars, will see you the day of your discharge. You will begin groups throughout the day, every weekday, in the clinic on discharge. You will also see)
[2016-08-19] MEDS: Acetaminophen 325 MG TABLET PO PRN (20:23)
[2016-08-19] MEDS: Divalproex (24 HR) 500 MG TABLET PO SCH (20:24)
[2016-08-19] MEDS ORDERED: cloNIDine HCl 0.1 MG TABLET PO SCH (21:00)
[2016-08-20] MEDS: Baclofen 10 MG TABLET PO SCH (08:13)
[2016-08-20] MEDS: Lithium Carbonate ER 450 MG TABLET.ER PO SCH (08:14)
[2016-08-20] MEDS: OXcarbazepine 150 MG TABLET PO SCH (08:15)
[2016-08-20 09:13] VITALS: BP 104/72
[2016-08-20] MEDS: hydrOXYzine pamoate 25 MG CAPSULE PO PRN (11:44)
--- NOTE | 2016-08-20 13:51 | Discharge Summary ---
Date of Encounter: 08/20/16 Time of Encounter: 13:41 Diagnosis - Discharge Diagnosis (1) Alcohol dependence with acute alcoholic intoxication Status: Acute Qualifiers: Complication of substance-induced condition: uncomplicated Qualified Code(s ): F10.220 - Alcohol dependence with intoxication, uncomplicated (2) Severe major depression with psychotic features Status: Acute Medications - Discharge Medications Prescriptions: Amantadine [Symmetrel] 100 mg PO BID #30 capsule Baclofen [Lioresal] 5 mg PO BID #14 tablet CloNIDine HCl 0.1 mg PO HS #30 tablet Divalproex (24 HR) [Depakote ER (24 HR)] 500 mg PO HS #14 tab.er.24h [place] Carbonate ER [Eskalith] 450 mg PO BID #14 tablet.er Lurasidone [Latuda] 40 mg PO HS #14 tablet Oxcarbazepine [Trileptal] 300 mg PO QAM #14 tablet Oxcarbazepine [Trileptal] 600 mg PO HS #14 tablet Quetiapine Fumarate [Seroquel] 50 mg PO HS PRN #14 tablet PRN Reason: Insomnia Sertraline [Zoloft] 100 mg PO DAILY #14 tablet Amantadine [Symmetrel] 100 mg PO BID #30 capsule 08/20/16 [Rx] Baclofen [Lioresal] 5 mg PO BID #14 tablet 08/20/16 [Rx] CloNIDine HCl 0.1 mg PO HS #30 tablet 08/20/16 [Rx] Divalproex (24 HR) [Depakote ER (24 HR)] 500 mg PO HS #14 tab.er.24h 08/20/16 [ Rx] [place] Carbonate ER [Eskalith] 450 mg PO BID #14 tablet.er 08/20/16 [Rx] Lurasidone [Latuda] 40 mg PO HS #14 tablet 08/20/16 [Rx] Oxcarbazepine [Trileptal] 300 mg PO QAM #14 tablet 08/20/16 [Rx] Oxcarbazepine [Trileptal] 600 mg PO HS #14 tablet 08/20/16 [Rx] Quetiapine Fumarate [Seroquel] 50 mg PO HS PRN #14 tablet 08/20/16 [Rx] Sertraline [Zoloft] 100 mg PO DAILY #14 tablet 08/20/16 [Rx] Allergies No Known Allergies Allergy (Verified 07/30/16 23:11) Results Procedures and tests throughout hospitalization: Completed Lab Orders Category Date Time Status Chem 7 [Basic Metabolic Panel] Routine Lab 08/15/16 16:32 Completed Valproate Routine Lab 08/10/16 08:08 Completed Valproate Routine Lab 08/11/16 09:48 Completed Provider Date of admission: 07/31/16 15:44 Primary care physician: PCP NO Discharging clinician: Bacilio Hsieh Assessment and Plan - Patient/Caregiver Discharge Instructions Activity: resume usual activities as tolerated Diet: regular diet - Follow up Plan Follow up with: [facility] [Outside] (Your embedded case manager, Lars, will see you the day of your discharge. You will begin groups throughout the day, every weekday, in the clinic on discharge. You will also see) Functional capacity at discharge: independent ambulation Overall status at discharge: Stable Disposition: Home, Self-Care Hospital Course Hospital course: Mr. Ken is a 30 year old male admitted for suicidal ideation and DEPENDENCE on alcohol. For details of the admission please see H&P On the units patient was irritable and uncooperative and not participating in treatment groups. She had probable cause hearing and continued hospitalization and stabilization. Medication changes were documented including Depakote, Seroquel, lithium, Trileptal as per records to stabilize patient mood. platform worker has several contacts and meetings with family and embedded case manager's to organize discharge plans and follow-up in the community. Currently discharge plans are final and she heard was a patient and family. Patient patient denies suicidal ideation and is concerned about his living situation but he certainly attends maximum hospital benefits at this time. Prior to discharge patient was medically stable, tolerating medication without side effects and aware of his discharge plans. - Time Spent with Patient Total time spent providing and/or coordinating discharge services: Greater than 30 minutes Quality - Multiple Antipsychotics Patient discharged on 2 or more antipsychotic medications: Yes - Justification Documentation of: Cross-taper in progress at time of discharge (Patient is on Lurasidon and on a small dose of Seroquel for sleep) Procedures - Procedures Procedures: Medication Management, Crisis Stabilization, Supportive Therapy, Group Therapy, Psychoeducational Therapy Mental Status Exam - Mental Status Exam Patient orientation: Yes Person, Yes Time, Yes Place Level of alertness: Alert Patient appearance: Appropriate, Unkempt Behavior: calm, cooperative, other Psychomotor activity: Normal Eye contact: Maintains Eye Contact Mood description: Depressed, Anxious, Other (Agitated) Affect description: congruent with mood, euthymic, dysphoric, anxious, other ( ) Speech pattern: Normal rate, Normal rhythm, Normal tone, Clear, Slowed Speech Volume: Soft/Quiet Thought process: Logical, Linear, [place] Thought Content: No Overt delusions Perceptual Disturbances: No Auditory hallucinations, No Visual hallucinations Judgment: Limited Insight: Partial
== END 2016-08-20 14:35 | disposition home or self-care (01) | DRG 751 ==
LOC: EMEROO 23:07 → 1ANU 07-31 15:44 → SUATTDRO 07-31 15:44 → 1ANU 07-31 15:52
PROVIDERS: ADMIT Psychiatry & Neurology Psychiatry; ATTEND Psychiatry & Neurology Psychiatry